=== PATIENT | male | born 1965 | race Caucasian/White ===

== ENCOUNTER 2016-06-12 12:23 | Emergency (ER) | payer BC ==
[2016-06-12 12:28] VITALS: TEMP 98
[2016-06-12] MEDS ORDERED: KETOROLAC 30 MG/ML 1 ML VIAL IVP STA (13:00)
[2016-06-12] MEDS ORDERED: MORPHINE SULFATE 4 MG/ML SYRINGE IV STA (13:00)
--- NOTE | 2016-06-12 13:05 | ED ---
Abdominal Pain HPI - General Chief Complaint: Back Pain/Injury Stated Complaint: Abdominal Pain Time Seen by Provider: 06/12/16 12:31 Source: patient, RN notes reviewed Mode of arrival: ambulatory Limitations: no limitations - History of Present Illness Initial Comments: This patient is a 51-year-old man who presents with pain that he states reminds him of a previous kidney stone. He states that the pain came on this morning after he had put somewhat in the stove, while he was driving to work. He noticed the pain in the left lower quadrant and left flank. He states that the pain then became more severe over the next couple of hours. The pain is somewhat aching and somewhat sharp. Currently moderate intensity. He has not found anything that makes it get better or worse. The patient has also noticed that he has had darker than usual urine. No other symptoms. MD Complaint: abdominal pain, flank pain Onset/Timin -: hour(s) Location: LLQ, L flank Radiation: none Migration to: no migration Severity: moderate Quality: aching, sharp Consistency: constant Improves With: nothing Worsens With: nothing Associated Symptoms: other (Dark urine) - Related Data Home Medications Medication Instructions Recorded Confirmed Ibuprofen [Motrin] 400 mg PO Q6HR PRN 06/12/16 06/12/16 Previous Rx's Medication Instructions Recorded Hydrocodone/Acetaminophen [[place] 1 each PO Q6HR PRN #20 tab 06/12/16 5-325] Ondansetron Odt [Zofran ODT] 4 mg PO Q8HR PRN #10 tab 06/12/16 Tamsulosin [Flomax] 0.4 mg PO DAILY #14 cap 06/12/16 Allergies Allergy/AdvReac Type Severity Reaction Status Date / Time No Known Allergies Allergy Verified 06/12/16 12:36 Review of Systems ROS Statement: Those systems with pertinent positive or pertinent negative responses have been documented in the HPI. ROS Other: All systems not noted in ROS Statement are negative. Constitutional: Denies: fever, chills Respiratory: Denies: cough, dyspnea Cardiovascular: Denies: chest pain Gastrointestinal: Reports: abdominal pain. Denies: nausea, vomiting, diarrhea, constipation, melena, hematochezia Genitourinary: Reports: as per HPI, other (Darker urine). Denies: dysuria, frequency, testicular mass Musculoskeletal: Denies: back pain Skin: Denies: rash Neurological: Denies: headache, weakness, numbness Past Medical History Past Medical History: No Reported History History of Any Multi-Drug Resistant Organisms: None Reported Past Surgical History: No Surgical Hx Reported Past Psychological History: No Psychological Hx Reported Smoking Status: Never smoker Past Alcohol Use History: None Reported Past Drug Use History: None Reported General Exam Limitations: no limitations General appearance: alert, in no apparent distress Head exam: Present: atraumatic, normocephalic Eye exam: Present: normal appearance. Absent: scleral icterus, conjunctival injection ENT exam: Present: normal oropharynx Neck exam: Present: normal inspection, full ROM Respiratory exam: Present: normal lung sounds bilaterally. Absent: respiratory distress, wheezes, rales, rhonchi, stridor Cardiovascular Exam: Present: regular rate, normal rhythm, normal heart sounds. Absent: systolic murmur, diastolic murmur, rubs, gallop GI/Abdominal exam: Present: soft, normal bowel sounds. Absent: distended, tenderness, guarding, rebound, organomegaly, mass, pulsatile mass Extremities exam: Present: normal inspection, normal capillary refill. Absent: pedal edema, calf tenderness Back exam: Present: normal inspection. Absent: CVA tenderness (R), CVA tenderness (L) Skin exam: Present: warm, dry, intact, normal color. Absent: rash Course Vital Signs 06/12/16 06/12/16 12:27 14:26 Temperature 98 F Pulse Rate 89 73 Respiratory 20 18 Rate Blood Pressure 172/84 163/94 O2 Sat by Pulse 96 97 Oximetry Medical Decision Making - Lab Data Result diagrams: 06/12/16 13:10 06/12/16 13:10 Lab Results 06/12/16 06/12/16 06/12/16 Range/Units 13:00 13:10 13:10 WBC 5.8 (3.8-10.6) k/uL RBC 5.61 (4.30-5.90) m/uL Hgb 17.1 (13.0-17.5) gm/dL Hct 51.4 (39.0-53.0) % MCV 91.5 (80.0-100.0) fL MCH 30.5 (25.0-35.0) pg MCHC 33.3 (31.0-37.0) g/dL RDW 13.0 (11.5-15.5) % Plt Count 192 (150-450) k/uL Neutrophils % 70 % Lymphocytes % 19 % Monocytes % 5 % Eosinophils % 3 % Basophils % 1 % Neutrophils # 4.0 (1.3-7.7) k/uL Lymphocytes # 1.1 (1.0-4.8) k/uL Monocytes # 0.3 (0-1.0) k/uL Eosinophils # 0.2 (0-0.7) k/uL Basophils # 0.0 (0-0.2) k/uL Sodium 142 (137-145) mmol/L Potassium 4.6 (3.5-5.1) mmol/L Chloride 104 (98-107) mmol/L Carbon Dioxide 25 (22-30) mmol/L Anion Gap 13 mmol/L BUN 19 (9-20) mg/dL Creatinine 0.95 (0.66-1.25) mg/dL Est GFR (MDRD) Af Amer >60 (>60 ml/min/1.73 sqM) Est GFR (MDRD) Non-Af >60 (>60 ml/min/1.73 sqM) Glucose 94 (74-99) mg/dL Calcium 9.5 (8.4-10.2) mg/dL Urine Color Yellow Urine Appearance Cloudy (Clear) Urine pH 5.5 (5.0-8.0) Ur Specific [place] 1.021 (1.001-1.035) Urine Protein Trace H (Negative) Urine Glucose (UA) Negative (Negative) Urine Ketones Trace H (Negative) Urine Blood Moderate H (Negative) Urine Nitrate Negative (Negative) Urine Bilirubin Negative (Negative) Urine Urobilinogen <2.0 (<2.0) mg/dL Ur Leukocyte Esterase Negative (Negative) Urine RBC >182 H (0-5) /hpf Urine Bacteria Rare H (None) /hpf Urine Mucus Occasional H (None) /hpf Disposition Clinical Impression: Renal colic, Hypertension Disposition: HOME SELF-CARE Condition: Good Instructions: Renal Colic (ED), Hypertension (ED) Prescriptions: Hydrocodone/Acetaminophen [[place] 5-325] 1 each PO Q6HR PRN #20 tab PRN Reason: Pain Ondansetron Odt [Zofran ODT] 4 mg PO Q8HR PRN #10 tab PRN Reason: Nausea Tamsulosin [Flomax] 0.4 mg PO DAILY #14 cap Referrals: Meghna Tello MD [Primary Care Provider] - 1-2 days Chau Christine MD [STAFF PHYSICIAN] - 1-2 days
[2016-06-12 13:24] LABS: Basophils % (A) 1 %; CH 30.9; CHCM 33.9; Eosinophils # (A) 0.2 k/uL (0-0.7); Eosinophils % (A) 3 %; HCT 51.4 % (39.0-53.0); HDW 2.66; HGB 17.1 gm/dL (13.0-17.5); Luc # (Auto) 0.17; Luc % (Auto) 3; Lymphocytes # (A) 1.1 k/uL (1.0-4.8); Lymphocytes % (A) 19 %; MCH 30.5 pg (25.0-35.0); MCHC 33.3 g/dL (31.0-37.0); MCV 91.5 fL (80.0-100.0); Mean Platelet Volume 6.9; Monocytes # (A) 0.3 k/uL (0-1.0); Monocytes % (A) 5 %; Neutrophils % (A) 70 %; RBC 5.61 m/uL (4.30-5.90); WBC 5.8 k/uL (3.8-10.6); WBC (Perox) 6.29
[2016-06-12 13:30] LABS: Appearance,Urine Cloudy (Clear); Bacteria,Urine Rare /hpf; Bilirubin,Urine Negative (Negative); Glucose,Urine (UA) Negative (Negative); Ketones,Urine Trace (Negative); Leukocyte Esterase,Urine Negative (Negative); Mucus,Urine Occasional /hpf; Nitrite,Urine Negative (Negative); PH, Urine 5.5 (5.0-8.0); Particle Count 3307; Protein,Urine Trace (Negative); RBC,Urine >182 /hpf (0-5); Specific Gravity,Urine 1.021 (1.001-1.035); UA Billing (MACRO vs. MICRO) MICRO; Urobilinogen,Urine <2.0 mg/dL (<2.0)
[2016-06-12 13:34] LABS: Anion Gap 13 mmol/L; Blood Urea Nitrogen 19 mg/dL (9-20); Calcium 9.5 mg/dL (8.4-10.2); Carbon Dioxide 25 mmol/L (22-30); Chloride 104 mmol/L (98-107); Glucose 94 mg/dL (74-99); Non-African American GFR(MDRD) >60 (>60 ml/min/1.73 sqM); Potassium 4.6 mmol/L (3.5-5.1); Sodium 142 mmol/L (137-145)
[2016-06-12] MEDS ORDERED: TAMSULOSIN 0.4 MG CAP.ER.24H PO STA (13:38)
[2016-06-12 14:27] VITALS: BP 163/94; PULSE 73; RESP 18
== END 2016-06-12 14:38 | disposition home or self-care (01) ==
LOC: EC 12:23
DX: N23 Unspecified renal colic (principal); I10 Essential (primary) hypertension
CPT/HCPCS: 99284; 96374; 36415; 80048; 85025; 81001; J1885

== ENCOUNTER → 2016-06-18 | Outpatient (CLI) | payer BC ==
--- NOTE | 2016-06-18 12:27 | XR ---
EXAMINATION TYPE: XR KUB DATE OF EXAM ORDERED: 06/18/2016 12:09 PM HISTORY: Low back pain. COMPARISON: None. FINDINGS: The abdominal gas pattern is normal. There is no evidence of obstruction or free air. Ther e are multiple phleboliths within the pelvis. There is moderate stool within the right side of the co soledad. IMPRESSION: NO ACUTE INTRA-ABDOMINAL ABNORMALITY.
== END | disposition home or self-care (01) ==
LOC: RADXRMAIN 11:49
PROVIDERS: ATTEND Urology
DX: N20.0 Calculus of kidney (principal)
CPT/HCPCS: 74000

== ENCOUNTER 2017-03-30 17:31 | Emergency (ER) | payer BC ==
--- NOTE | 2017-03-30 18:34 | ED ---
General Adult HPI - General Chief complaint: Abdominal Pain Stated complaint: Kidney Stones Time Seen by Provider: 03/30/17 18:24 Source: patient, RN notes reviewed Mode of arrival: ambulatory Limitations: no limitations - History of Present Illness Initial comments: patient 52-year-old male significant past medical history of kidney stones, who presents emergency room today with a chief complaint of kidney stone type pain that began earlier in the month. He does not that his symptoms began. states that over the last few days the symptoms have been more consistent. States feeling pain on the left flank. States consistent with kidney stone pain that is had in the past. Has seen some hematuria a few days ago. Patient states over the last 2 hours he was having increased pain but since being here in the emergency room symptoms have improved currently at this time pain-free. Patient denies any recent fever, chills, shortness of breath, chest pain, back pain, nausea or vomiting, numbness or tingling, dysuria or hematuria, constipation or diarrhea, headaches or visual changes, or any other complaints. - Related Data Home Medications Medication Instructions Recorded Confirmed Ibuprofen [Motrin] 400 mg PO Q6HR PRN 06/12/16 03/30/17 Ascorbic Acid [Vitamin C] 500 mg PO DAILY PRN 03/30/17 03/30/17 Hydrocodone/Acetaminophen [[place] 1 tab PO Q6HR PRN 03/30/17 03/30/17 5-325] Previous Rx's Medication Instructions Recorded Hydrocodone/Acetaminophen [[place] 1 each PO Q6HR PRN #20 tab 03/30/17 5-325] Ibuprofen [Motrin] 600 mg PO Q6HR PRN #40 day 03/30/17 Tamsulosin [Flomax] 0.4 mg PO DAILY #10 cap 03/30/17 Allergies Allergy/AdvReac Type Severity Reaction Status Date / Time No Known Allergies Allergy Verified 03/30/17 19:05 Review of Systems ROS Statement: Those systems with pertinent positive or pertinent negative responses have been documented in the HPI. ROS Other: All systems not noted in ROS Statement are negative. Past Medical History Past Medical History: No Reported History Additional Past Medical History / Comment(s): kidneys tones History of Any Multi-Drug Resistant Organisms: None Reported Past Surgical History: No Surgical Hx Reported Past Psychological History: No Psychological Hx Reported Smoking Status: Never smoker Past Alcohol Use History: None Reported Past Drug Use History: None Reported General Exam - General Exam Comments Initial Comments: General: The patient is awake and alert, in no distress, and does not appear acutely ill. Eye: Pupils are equal, round and reactive to light, extra-ocular movements are intact. No nystagmus. There is normal conjunctiva bilaterally. No signs of icterus. Ears, nose, mouth and throat: There are moist mucous membranes and no oral lesions. Neck: The neck is supple, there is no tenderness or JVD. Cardiovascular: There is a regular rate and rhythm. No murmur, rub or gallop is appreciated. Respiratory: Lungs are clear to auscultation, respirations are non-labored, breath sounds are equal. No wheezes, stridor, rales, or rhonchi. Gastrointestinal: Soft, non-distended, non-tender abdomen without masses or organomegaly noted. There is no rebound or guarding present. No CVA tenderness. Bowel sounds are unremarkable. Musculoskeletal: Normal ROM, no tenderness. Strength 5/5. Sensation intact. Pulses equal bilaterally 2+. Neurological: A&O x 3. CN II-XII intact, There are no obvious motor or sensory deficits. Coordination appears grossly intact. Speech is normal. Skin: Skin is warm and dry and no rashes or lesions are noted. Psychiatric: Cooperative, appropriate mood & affect, normal judgment. Limitations: no limitations Course Vital Signs 03/30/17 17:57 Temperature 98.8 F Pulse Rate 79 Respiratory 18 Rate Blood Pressure 160/83 O2 Sat by Pulse 99 Oximetry Medical Decision Making - Medical Decision Making Patient reexamined at this time shows no signs of distress. Is much improvement of her medications given here the emergency room. Patient's labs reviewed. Urinalysis shows large amount of blood no sign of infection. Patient does admit that the symptoms are consistent with kidney stones. He does admit that he plans follow-up with his urologist tomorrow. Options of CT were discussed with the patient it started feels comfortable following up with his urologist. States symptoms are consistent with stones that is had in the past. There is no sign of infection. Patient will be discharged home on Flomax , pain medication. Advised return to emergency room if any symptoms increase or worsen and to follow-up with his urologist over the next 2 days. - Lab Data Result diagrams: 03/30/17 18:34 03/30/17 18:34 Lab Results 03/30/17 03/30/17 03/30/17 Range/Units 18:34 18:34 18:34 WBC 9.9 (3.8-10.6) k/uL RBC 5.13 (4.30-5.90) m/uL Hgb 15.7 (13.0-17.5) gm/dL Hct 47.9 (39.0-53.0) % MCV 93.5 (80.0-100.0) fL MCH 30.7 (25.0-35.0) pg MCHC 32.8 (31.0-37.0) g/dL RDW 13.8 (11.5-15.5) % Plt Count 198 (150-450) k/uL Neutrophils % 74 % Lymphocytes % 14 % Monocytes % 8 % Eosinophils % 3 % Basophils % 0 % Neutrophils # 7.3 (1.3-7.7) k/uL Lymphocytes # 1.4 (1.0-4.8) k/uL Monocytes # 0.8 (0-1.0) k/uL Eosinophils # 0.2 (0-0.7) k/uL Basophils # 0.0 (0-0.2) k/uL Sodium 141 (137-145) mmol/L Potassium 3.8 (3.5-5.1) mmol/L Chloride 105 (98-107) mmol/L Carbon Dioxide 27 (22-30) mmol/L Anion Gap 9 mmol/L BUN 15 (9-20) mg/dL Creatinine 1.29 H (0.66-1.25) mg/dL Est GFR (MDRD) Af Amer >60 (>60 ml/min/1.73 sqM) Est GFR (MDRD) Non-Af 58 (>60 ml/min/1.73 sqM) Glucose 100 H (74-99) mg/dL Calcium 9.5 (8.4-10.2) mg/dL Total Bilirubin 0.7 (0.2-1.3) mg/dL AST 22 (17-59) U/L ALT 38 (21-72) U/L Alkaline Phosphatase 72 (38-126) U/L Total Protein 7.0 (6.3-8.2) g/dL Albumin 4.2 (3.5-5.0) g/dL Lipase 90 (23-300) U/L Urine Color Yellow Urine Appearance Clear (Clear) Urine pH 6.5 (5.0-8.0) Ur Specific [place] 1.019 (1.001-1.035) Urine Protein Trace H (Negative) Urine Glucose (UA) Negative (Negative) Urine Ketones Negative (Negative) Urine Blood Large H (Negative) Urine Nitrite Negative (Negative) Urine Bilirubin Negative (Negative) Urine Urobilinogen <2.0 (<2.0) mg/dL Ur Leukocyte Esterase Negative (Negative) Urine RBC >182 H (0-5) /hpf Urine WBC 2 (0-5) /hpf Urine Mucus Rare H (None) /hpf Disposition Clinical Impression: Kidney stone Disposition: HOME SELF-CARE Condition: Good Instructions: Kidney Stones (ED) Additional Instructions: Please use medication as discussed. Please follow-up with urologist/family doctor in the next 2 days of symptoms have not improved. Please return to emergency room if the symptoms increase or worsen or for any other concerns. Prescriptions: Hydrocodone/Acetaminophen [[place] 5-325] 1 each PO Q6HR PRN #20 tab PRN Reason: Pain Ibuprofen [Motrin] 600 mg PO Q6HR PRN #40 day PRN Reason: Pain Tamsulosin [Flomax] 0.4 mg PO DAILY #10 cap Referrals: Meghna Tello MD [Primary Care Provider] - 1-2 days Time of Disposition: 19:29
[2017-03-30] MEDS ORDERED: ONDANSETRON 4 MG/2 ML VIAL IVP STA (18:39)
[2017-03-30] MEDS ORDERED: KETOROLAC 30 MG/ML 1 ML VIAL IVP STA (18:39)
[2017-03-30] MEDS ORDERED: HYDROmorphone 1 MG/ML 1 ML SYRINGE IVP STA (18:39)
[2017-03-30 18:46] LABS: Basophils % (A) 0 %; CH 30.5; CHCM 32.8; Eosinophils # (A) 0.2 k/uL (0-0.7); Eosinophils % (A) 3 %; HCT 47.9 % (39.0-53.0); HDW 2.47; HGB 15.7 gm/dL (13.0-17.5); Luc # (Auto) 0.15; Luc % (Auto) 2; Lymphocytes # (A) 1.4 k/uL (1.0-4.8); Lymphocytes % (A) 14 %; MCH 30.7 pg (25.0-35.0); MCHC 32.8 g/dL (31.0-37.0); MCV 93.5 fL (80.0-100.0); Mean Platelet Volume 7.6; Monocytes # (A) 0.8 k/uL (0-1.0); Monocytes % (A) 8 %; Neutrophils # (A) 7.3 k/uL (1.3-7.7); Neutrophils % (A) 74 %; RBC 5.13 m/uL (4.30-5.90); RDW 13.8 % (11.5-15.5); WBC 9.9 k/uL (3.8-10.6); WBC (Perox) 9.77
[2017-03-30 18:49] LABS: Appearance,Urine Clear (Clear); Bilirubin,Urine Negative (Negative); Glucose,Urine (UA) Negative (Negative); Ketones,Urine Negative (Negative); Leukocyte Esterase,Urine Negative (Negative); Mucus,Urine Rare /hpf; Nitrite,Urine Negative (Negative); PH, Urine 6.5 (5.0-8.0); Particle Count 1908; Protein,Urine Trace (Negative); RBC,Urine >182 /hpf (0-5); Specific Gravity,Urine 1.019 (1.001-1.035); UA Billing (MACRO vs. MICRO) MICRO; Urobilinogen,Urine <2.0 mg/dL (<2.0); WBC,Urine 2 /hpf (0-5)
[2017-03-30 18:58] LABS: ALT 38 U/L (21-72); AST 22 U/L (17-59); Alkaline Phosphatase 72 U/L (38-126); Anion Gap 9 mmol/L; Blood Urea Nitrogen 15 mg/dL (9-20); Calcium 9.5 mg/dL (8.4-10.2); Carbon Dioxide 27 mmol/L (22-30); Chloride 105 mmol/L (98-107); Glucose 100 mg/dL (74-99); Non-African American GFR(MDRD) 58 (>60 ml/min/1.73 sqM); Potassium 3.8 mmol/L (3.5-5.1); Sodium 141 mmol/L (137-145); Total Bilirubin 0.7 mg/dL (0.2-1.3)
--- NOTE | 2017-03-30 19:08 | XR ---
EXAMINATION TYPE: XR KUB DATE OF EXAM: 03/30/2017 COMPARISON: 06/18/2016 HISTORY: Abdominal pain TECHNIQUE: 2 views FINDINGS: There is no sign of intestinal obstruction or pneumoperitoneum. Fecal pattern is normal. Th ere are no pathologic calcifications over the kidneys. Lung bases are clear. There is no sign of a ma ss. IMPRESSION: Nonacute abdomen. No change.
[2017-03-30] MEDS ORDERED: HYDROmorphone 2 MG/ML 1 ML SYRINGE IVP STA (19:35)
[2017-03-30 20:22] VITALS: BP 150/87; PULSE 78; RESP 20; TEMP 98.7
== END 2017-03-30 20:15 | disposition home or self-care (01) ==
LOC: EC 17:31
DX: N20.0 Calculus of kidney (principal); Z53.8 Procedure and treatment not carried out for other reasons
CPT/HCPCS: 36415; 80053; 83690; 85025; 81001; 87086; 74000; 99284; 96374; 96375 ×2; J1170; J2405; J1885

== ENCOUNTER → 2017-04-01 | Outpatient (CLI) | payer BC ==
--- NOTE | 2017-04-01 14:50 | CT ---
EXAMINATION TYPE: CT abdomen pelvis wo con DATE OF EXAM: 04/01/2017 HISTORY: Left flank pain since Wednesday. History of kidney stones CT DLP: 652.2 mGycm. Automated Exposure Control for Dose Reduction was Utilized. TECHNIQUE: CT scan of the abdomen and pelvis is performed without oral or IV contrast. COMPARISON: CT abdomen and pelvis November 15, 2011 FINDINGS: Within the limitations of a non-contrast study, the following observations are made. LUNG BASES: No significant abnormality is appreciated. LIVER/GB: No significant abnormality is appreciated. PANCREAS: There is stable mild to moderate generalized fat replaced atrophy of pancreas SPLEEN: There is stable 9 mm splenule in splenic hilum. ADRENALS: No significant abnormality is seen. KIDNEYS: No renal stones or hydronephrosis is present bilaterally. There is mild ill-defined fluid or fat stranding left retroperitoneum just above the iliopsoas muscle inferior to left renal margin see n best axial image 97. A few scattered pelvic phleboliths. No intraluminal calculus in the bladder is seen. BOWEL: No significant abnormality is seen. GENITAL ORGANS: Central zone calcification is seen in normal size prostate gland. LYMPH NODES: No greater than 1cm abdominal or pelvic lymph nodes are appreciated. OSSEOUS STRUCTURES: No significant abnormality is seen. OTHER: Mild calcified plaque is seen along course of internal carotid arteries bilaterally. IMPRESSION: No renal stones or hydronephrosis is seen bilaterally. Mild inferior left retroperitoneal fluid or fat stranding, etiology uncertain, consider recently passed stone worrisome possible infect ion along course of nearby left ureter. Correlate clinically and with urine lab values.
== END | disposition home or self-care (01) ==
LOC: RADCTMAIN 14:12
PROVIDERS: ATTEND Urology
DX: R10.9 Unspecified abdominal pain (principal); Z87.442 Personal history of urinary calculi
CPT/HCPCS: 74176

== ENCOUNTER 2017-04-22 19:28 | Emergency (ER) | payer BC ==
[2017-04-22 19:54] VITALS: RESP 18; TEMP 97.9
[2017-04-22 20:05] LABS: Appearance,Urine Clear (Clear); Bacteria,Urine Rare /hpf; Bilirubin,Urine Negative (Negative); Glucose,Urine (UA) Negative (Negative); Ketones,Urine Negative (Negative); Leukocyte Esterase,Urine Negative (Negative); Mucus,Urine Rare /hpf; Nitrite,Urine Negative (Negative); Particle Count 816; Protein,Urine Negative (Negative); RBC,Urine 1 /hpf (0-5); Specific Gravity,Urine 1.006 (1.001-1.035); UA Billing (MACRO vs. MICRO) MICRO; Urobilinogen,Urine <2.0 mg/dL (<2.0); WBC,Urine 1 /hpf (0-5)
[2017-04-22 20:55] VITALS: PULSE 64
[2017-04-22] MEDS ORDERED: SODIUM CHLORIDE 0.9% 1,000 ML IV STA (21:01)
[2017-04-22] MEDS ORDERED: KETOROLAC 30 MG/ML 1 ML VIAL IVP STA (21:01)
[2017-04-22 21:48] LABS: Basophils # (A) 0.1 k/uL (0-0.2); Basophils % (A) 1 %; CH 30.7; CHCM 32.6; Eosinophils # (A) 0.2 k/uL (0-0.7); Eosinophils % (A) 3 %; HCT 49.4 % (39.0-53.0); HDW 2.44; HGB 15.8 gm/dL (13.0-17.5); Luc # (Auto) 0.17; Luc % (Auto) 2; Lymphocytes # (A) 1.8 k/uL (1.0-4.8); Lymphocytes % (A) 22 %; MCH 30.3 pg (25.0-35.0); MCV 94.7 fL (80.0-100.0); Mean Platelet Volume 7.8; Monocytes # (A) 0.6 k/uL (0-1.0); Monocytes % (A) 7 %; Neutrophils # (A) 5.5 k/uL (1.3-7.7); Neutrophils % (A) 66 %; RBC 5.22 m/uL (4.30-5.90); RDW 13.6 % (11.5-15.5); WBC 8.3 k/uL (3.8-10.6); WBC (Perox) 8.44
--- NOTE | 2017-04-22 21:59 | XR ---
EXAMINATION TYPE: XR KUB, 2 views DATE OF EXAM: 04/22/2017 9:43 PM CLINICAL HISTORY: Left-sided kidney calcification history, now urination urgency TECHNIQUE: 2 upright views obtained of the abdomen and pelvis. COMPARISON: 03/30/2017 FINDINGS: Scattered gas is seen in non-distended small bowel loops. Gas and fecal material is seen in non-distended colon. There is no visceromegaly, and this includes urinary bladder which is not appea r distended. There is no pneumoperitoneum, ptosis, or abnormal calcification appreciated. The generalized lung bases and pleural spaces are clear. The osseous structures are intact. IMPRESSION: Unremarkable examination.
[2017-04-22 22:03] LABS: ALT 35 U/L (21-72); AST 23 U/L (17-59); Alkaline Phosphatase 73 U/L (38-126); Amylase 48 U/L (30-110); Anion Gap 13 mmol/L; Blood Urea Nitrogen 16 mg/dL (9-20); Calcium 9.9 mg/dL (8.4-10.2); Carbon Dioxide 28 mmol/L (22-30); Chloride 102 mmol/L (98-107); Glucose 81 mg/dL (74-99); Non-African American GFR(MDRD) >60 (>60 ml/min/1.73 sqM); Potassium 3.7 mmol/L (3.5-5.1); Sodium 143 mmol/L (137-145); Total Bilirubin 0.7 mg/dL (0.2-1.3); Total Protein 7.3 g/dL (6.3-8.2)
--- NOTE | 2017-04-22 22:29 | ED ---
Abdominal Pain HPI - General Chief Complaint: Abdominal Pain Stated Complaint: Abd /Back Pain Time Seen by Provider: 04/22/17 20:40 Source: patient, RN notes reviewed, old records reviewed Mode of arrival: ambulatory Limitations: no limitations - History of Present Illness Initial Comments: This is a 32-year-old male presents emergency department today with chief complaint of left flank pain. He reports he had passed a kidney stone things don't feel like today's pain is similar to this. Patient reports urinary frequency and dysuria. Patient denies any fever or chills, abdominal pain, nausea or vomiting. - Related Data Home Medications Medication Instructions Recorded Confirmed Hydrocodone/Acetaminophen [[place] 1 tab PO Q6HR PRN 03/30/17 04/22/17 5-325] Previous Rx's Medication Instructions Recorded Ibuprofen [Motrin] 600 mg PO Q6HR PRN #40 day 03/30/17 Ciprofloxacin HCl [Cipro] 500 mg PO Q12HR 7 Days tab 04/22/17 Ketorolac [Toradol] 10 mg PO TID #15 tab 04/22/17 Tamsulosin [Flomax] 0.4 mg PO DAILY #10 cap 04/22/17 Allergies Allergy/AdvReac Type Severity Reaction Status Date / Time No Known Allergies Allergy Verified 04/22/17 21:37 Review of Systems ROS Statement: Those systems with pertinent positive or pertinent negative responses have been documented in the HPI. ROS Other: All systems not noted in ROS Statement are negative. Past Medical History Past Medical History: No Reported History Additional Past Medical History / Comment(s): kidney stones History of Any Multi-Drug Resistant Organisms: None Reported Past Surgical History: No Surgical Hx Reported Past Psychological History: No Psychological Hx Reported Smoking Status: Never smoker Past Alcohol Use History: None Reported Past Drug Use History: None Reported General Exam - General Exam Comments Initial Comments: Blurry eyed a 52-year-old male. No distress. Limitations: no limitations General appearance: alert, in no apparent distress Head exam: Present: atraumatic, normocephalic, normal inspection Eye exam: Present: normal appearance, PERRL, EOMI. Absent: scleral icterus, conjunctival injection, periorbital swelling ENT exam: Present: normal exam, mucous membranes moist Neck exam: Present: normal inspection. Absent: tenderness, meningismus, lymphadenopathy Respiratory exam: Present: normal lung sounds bilaterally. Absent: respiratory distress, wheezes, rales, rhonchi, stridor Cardiovascular Exam: Present: regular rate, normal rhythm, normal heart sounds. Absent: systolic murmur, diastolic murmur, rubs, gallop, clicks GI/Abdominal exam: Present: soft, normal bowel sounds. Absent: distended, tenderness, guarding, rebound, rigid Extremities exam: Present: normal inspection, full ROM, normal capillary refill. Absent: tenderness, pedal edema, joint swelling, calf tenderness Back exam: Present: normal inspection Neurological exam: Present: alert, oriented X3, CN II-XII intact Psychiatric exam: Present: normal affect, normal mood Skin exam: Present: warm, dry, intact, normal color. Absent: rash Course Vital Signs 04/22/17 04/22/17 04/22/17 19:50 20:45 23:25 Temperature 97.9 F 97.9 F Pulse Rate 84 64 64 Respiratory 18 18 18 Rate Blood Pressure 140/82 168/95 158/90 O2 Sat by Pulse 99 99 99 Oximetry Medical Decision Making - Medical Decision Making Patient is a 52 year old male with urinary frequency and flank pain. Patient had recent CT scan, and discussed checking for stones we can complete US. Patient labs were reviewed and normal. Patient urine had trace RBC. US and KUB are negative for stones or hydronephrosis. Patient reports that he is feeling better and would like to go home. Discussed that he could have passed a stone already at this time. Discussed follow up with urology. REturn parameters discussed. - Lab Data Result diagrams: 04/22/17 21:30 04/22/17 21:30 Lab Results 04/22/17 04/22/17 04/22/17 Range/Units 19:56 21:30 21:30 WBC 8.3 (3.8-10.6) k/uL RBC 5.22 (4.30-5.90) m/uL Hgb 15.8 (13.0-17.5) gm/dL Hct 49.4 (39.0-53.0) % MCV 94.7 (80.0-100.0) fL MCH 30.3 (25.0-35.0) pg MCHC 32.0 (31.0-37.0) g/dL RDW 13.6 (11.5-15.5) % Plt Count 227 (150-450) k/uL Neutrophils % 66 % Lymphocytes % 22 % Monocytes % 7 % Eosinophils % 3 % Basophils % 1 % Neutrophils # 5.5 (1.3-7.7) k/uL Lymphocytes # 1.8 (1.0-4.8) k/uL Monocytes # 0.6 (0-1.0) k/uL Eosinophils # 0.2 (0-0.7) k/uL Basophils # 0.1 (0-0.2) k/uL Sodium 143 (137-145) mmol/L Potassium 3.7 (3.5-5.1) mmol/L Chloride 102 (98-107) mmol/L Carbon Dioxide 28 (22-30) mmol/L Anion Gap 13 mmol/L BUN 16 (9-20) mg/dL Creatinine 1.10 (0.66-1.25) mg/dL Est GFR (MDRD) Af Amer >60 (>60 ml/min/1.73 sqM) Est GFR (MDRD) Non-Af >60 (>60 ml/min/1.73 sqM) Glucose 81 (74-99) mg/dL Calcium 9.9 (8.4-10.2) mg/dL Total Bilirubin 0.7 (0.2-1.3) mg/dL AST 23 (17-59) U/L ALT 35 (21-72) U/L Alkaline Phosphatase 73 (38-126) U/L Total Protein 7.3 (6.3-8.2) g/dL Albumin 4.5 (3.5-5.0) g/dL Amylase 48 (30-110) U/L Lipase 53 (23-300) U/L Urine Color Light Yellow Urine Appearance Clear (Clear) Urine pH 7.0 (5.0-8.0) Ur Specific [place] 1.006 (1.001-1.035) Urine Protein Negative (Negative) Urine Glucose (UA) Negative (Negative) Urine Ketones Negative (Negative) Urine Blood Trace H (Negative) Urine Nitrite Negative (Negative) Urine Bilirubin Negative (Negative) Urine Urobilinogen <2.0 (<2.0) mg/dL Ur Leukocyte Esterase Negative (Negative) Urine RBC 1 (0-5) /hpf Urine WBC 1 (0-5) /hpf Urine Bacteria Rare H (None) /hpf Urine Mucus Rare H (None) /hpf - Radiology Data Radiology results: report reviewed US is negative for renal stones or hydronephrosis. KUB is negative for acute process. Disposition Clinical Impression: Hematuria Disposition: HOME SELF-CARE Condition: Good Instructions: Dysuria (ED), Flank Pain (ED) Additional Instructions: Patient to follow-up with primary care provider. Take the medications as prescribed. Return to emergency department if any alarming signs or symptoms occur. Prescriptions: Ciprofloxacin HCl [Cipro] 500 mg PO Q12HR 7 Days tab Ketorolac [Toradol] 10 mg PO TID #15 tab Tamsulosin [Flomax] 0.4 mg PO DAILY #10 cap Referrals: Meghna Tello MD [Primary Care Provider] - 1-2 days Time of Disposition: 23:23
--- NOTE | 2017-04-22 23:21 | US ---
EXAM: US Retroperitoneal Limited, Renal CLINICAL HISTORY: Reason: Pain, history of kidney stones TECHNIQUE: Real-time ultrasound of the retroperitoneum (limited) with image documentation. COMPARISON: CT abdomen and pelvis 04/01/17 and abdominal radiographs 04/22/17 FINDINGS: Right kidney: Normal echogenicity and length, measuring 12.6 cm. No renal calculus detected. No hydronephrosis. Left kidney: Normal echogenicity and length,, measuring 11.6 cm. Probable prominent column of Phil in the left kidney. No renal calculus detected. No hydronephrosis. Bladder: Not visualized. IMPRESSION: No hydronephrosis. No renal calculus detected.
[2017-04-22 23:26] VITALS: BP 158/90
== END 2017-04-22 23:36 | disposition home or self-care (01) ==
LOC: EC 19:28
DX: R31.9 Hematuria, unspecified (principal); R35.0 Frequency of micturition; R30.0 Dysuria; R10.9 Unspecified abdominal pain
CPT/HCPCS: 36415; 80053; 82150; 83690; 85025; 81001; 74000; 76770; 99285; 96374; 96361 ×2; J1885

== ENCOUNTER 2017-06-08 07:55 | Emergency (ER) | payer BC ==
[2017-06-08 08:06] VITALS: RESP 16
[2017-06-08 09:04] LABS: Basophils % (A) 0 %; Eosinophils # (A) 0.2 k/uL (0-0.7); Eosinophils % (A) 5 %; HGB 16.2 gm/dL (13.0-17.5); Lymphocytes # (A) 1.3 k/uL (1.0-4.8); Lymphocytes % (A) 27 %; MCH 31.4 pg (25.0-35.0); MCHC 33.8 g/dL (31.0-37.0); MCV 92.9 fL (80.0-100.0); Mean Platelet Volume 7.2; Monocytes # (A) 0.3 k/uL (0-1.0); Monocytes % (A) 6 %; Neutrophils # (A) 2.9 k/uL (1.3-7.7); Neutrophils % (A) 60 %; Platelet Count 196 k/uL (150-450); RBC 5.16 m/uL (4.30-5.90); WBC 4.8 k/uL (3.8-10.6)
--- NOTE | 2017-06-08 09:07 | ED ---
General Adult HPI - General Chief complaint: Urogenital Stated complaint: Back pain/burning when urinating Time Seen by Provider: 06/08/17 08:25 Source: patient, RN notes reviewed, old records reviewed Mode of arrival: ambulatory Limitations: no limitations - History of Present Illness Initial comments: Patient's a 52-year-old male who presents emergency room today with a chief complaint of dysuria. He does admit that he's had some symptoms on and off now for last several months. He states that he was seen in the emergency room diagnosed with possible kidney stone follow-up with urology who did not see the kidney stone at that time was still having some irritation was told that it should eventually clear up. Patient states that he came back to the emergency room was diagnosed with urinary tract infection was placed on antibiotic for 5 days. States he does not remember the name of that antibiotic. He states he follow-up back up with urology was still having symptoms did not see any sign for infection did do a cystoscopy showing no abnormality. Patient states that he was told that it again should improve. He states he had no improvement back to urology was told that it could be a infection of the prostate and started on antibiotic. He started taking Bactrim 4 days ago and no improvement of the symptoms still experiencing some discomfort with urination describes as burning. Also admits that even in between voiding episodes he feels some irritation to the penis itself and the shaft area. Patient does admit that he feels some increased frequency at times as well. He denies any other complaints. Patient denies any recent fever, chills, shortness of breath, chest pain, abdominal pain, nausea or vomiting, numbness or tingling, hematuria, constipation or diarrhea, headaches or visual changes, or any other complaints. - Related Data Home Medications Medication Instructions Recorded Confirmed Hydrocodone/Acetaminophen [[place] 1 tab PO Q6HR PRN 03/30/17 06/08/17 5-325] Sulfamethox-Tmp 800-160Mg [Bactrim 1 tab PO Q12HR 06/08/17 06/08/17 DS 800-160 mg] Tamsulosin [Flomax] 0.4 mg PO ONCE 06/08/17 06/08/17 Previous Rx's Medication Instructions Recorded Ibuprofen [Motrin] 600 mg PO Q6HR PRN #40 day 03/30/17 Phenazopyridine [Pyridium] 100 mg PO TID 6 Days day 06/08/17 Allergies Allergy/AdvReac Type Severity Reaction Status Date / Time No Known Allergies Allergy Verified 06/08/17 08:22 Review of Systems ROS Statement: Those systems with pertinent positive or pertinent negative responses have been documented in the HPI. ROS Other: All systems not noted in ROS Statement are negative. Past Medical History Past Medical History: No Reported History Additional Past Medical History / Comment(s): kidney stones History of Any Multi-Drug Resistant Organisms: None Reported Past Surgical History: No Surgical Hx Reported Past Psychological History: No Psychological Hx Reported Smoking Status: Never smoker Past Alcohol Use History: None Reported Past Drug Use History: None Reported General Exam - General Exam Comments Initial Comments: General: The patient is awake and alert, in no distress, and does not appear acutely ill. Eye: Pupils are equal, round and reactive to light, extra-ocular movements are intact. No nystagmus. There is normal conjunctiva bilaterally. No signs of icterus. Ears, nose, mouth and throat: There are moist mucous membranes and no oral lesions. Neck: The neck is supple, there is no tenderness or JVD. Cardiovascular: There is a regular rate and rhythm. No murmur, rub or gallop is appreciated. Respiratory: Lungs are clear to auscultation, respirations are non-labored, breath sounds are equal. No wheezes, stridor, rales, or rhonchi. Gastrointestinal: Soft, non-distended, non-tender abdomen without masses or organomegaly noted. There is no rebound or guarding present. No CVA tenderness. Musculoskeletal: Normal ROM, no tenderness. Strength 5/5. Sensation intact. Pulses equal bilaterally 2+. Neurological: A&O x 3. CN II-XII intact, There are no obvious motor or sensory deficits. Coordination appears grossly intact. Speech is normal. Skin: Skin is warm and dry and no rashes or lesions are noted. Psychiatric: Cooperative, appropriate mood & affect, normal judgment. Limitations: no limitations Course Vital Signs 06/08/17 08:02 Temperature 97.7 F Pulse Rate 92 Respiratory 16 Rate Blood Pressure 146/80 O2 Sat by Pulse 99 Oximetry Medical Decision Making - Medical Decision Making Patient reexamined at this time shows no signs of distress. His urinalysis review does show 43 red cells no sign of infection. Patient's remaining labs unremarkable. Patient will be left on Bactrim at this time culture is pending. Patient will be given a prescription for Pyridium. He is advised follow-up with urology. He is advised return if symptoms increase or worsen. - Lab Data Result diagrams: 06/08/17 08:58 06/08/17 08:58 Lab Results 06/08/17 06/08/17 06/08/17 Range/Units 08:30 08:58 08:58 WBC 4.8 (3.8-10.6) k/uL RBC 5.16 (4.30-5.90) m/uL Hgb 16.2 (13.0-17.5) gm/dL Hct 48.0 (39.0-53.0) % MCV 92.9 (80.0-100.0) fL MCH 31.4 (25.0-35.0) pg MCHC 33.8 (31.0-37.0) g/dL RDW 13.0 (11.5-15.5) % Plt Count 196 (150-450) k/uL Neutrophils % 60 % Lymphocytes % 27 % Monocytes % 6 % Eosinophils % 5 % Basophils % 0 % Neutrophils # 2.9 (1.3-7.7) k/uL Lymphocytes # 1.3 (1.0-4.8) k/uL Monocytes # 0.3 (0-1.0) k/uL Eosinophils # 0.2 (0-0.7) k/uL Basophils # 0.0 (0-0.2) k/uL Sodium 144 (137-145) mmol/L Potassium 3.7 (3.5-5.1) mmol/L Chloride 105 (98-107) mmol/L Carbon Dioxide 24 (22-30) mmol/L Anion Gap 15 mmol/L BUN 16 (9-20) mg/dL Creatinine 1.04 (0.66-1.25) mg/dL Est GFR (MDRD) Af Amer >60 (>60 ml/min/1.73 sqM) Est GFR (MDRD) Non-Af >60 (>60 ml/min/1.73 sqM) Glucose 97 (74-99) mg/dL Calcium 9.8 (8.4-10.2) mg/dL Total Bilirubin 1.0 (0.2-1.3) mg/dL AST 41 (17-59) U/L ALT 22 (21-72) U/L Alkaline Phosphatase 92 (38-126) U/L Total Protein 8.0 (6.3-8.2) g/dL Albumin 4.6 (3.5-5.0) g/dL Urine Color Yellow Urine Appearance Clear (Clear) Urine pH 5.5 (5.0-8.0) Ur Specific [place] 1.018 (1.001-1.035) Urine Protein Trace H (Negative) Urine Glucose (UA) Negative (Negative) Urine Ketones Negative (Negative) Urine Blood Small H (Negative) Urine Nitrite Negative (Negative) Urine Bilirubin Negative (Negative) Urine Urobilinogen <2.0 (<2.0) mg/dL Ur Leukocyte Esterase Negative (Negative) Urine RBC 43 H (0-5) /hpf Urine WBC 2 (0-5) /hpf Urine Mucus Few H (None) /hpf Disposition Clinical Impression: Dysuria, Hematuria Disposition: HOME SELF-CARE Condition: Good Instructions: Dysuria (ED) Additional Instructions: Please follow-up with urologist as discussed. Please use medication as prescribed and return to the emergency room symptoms increase or worsen. Prescriptions: Phenazopyridine [Pyridium] 100 mg PO TID 6 Days day Referrals: Meghna Tello MD [Primary Care Provider] - 1-2 days Chau Christine MD [STAFF PHYSICIAN] - 1-2 days Time of Disposition: 10:24
[2017-06-08 09:10] LABS: Appearance,Urine Clear (Clear); Bilirubin,Urine Negative (Negative); Blood,Urine Small (Negative); Color,Urine Yellow; Glucose,Urine (UA) Negative (Negative); Ketones,Urine Negative (Negative); Leukocyte Esterase,Urine Negative (Negative); Mucus,Urine Few /hpf; Nitrite,Urine Negative (Negative); PH, Urine 5.5 (5.0-8.0); Protein,Urine Trace (Negative); RBC,Urine 43 /hpf (0-5); Specific Gravity,Urine 1.018 (1.001-1.035); Urobilinogen,Urine <2.0 mg/dL (<2.0); WBC,Urine 2 /hpf (0-5)
--- NOTE | 2017-06-08 09:16 | XR ---
EXAMINATION TYPE: XR KUB DATE OF EXAM: 06/08/2017 9:07 AM CLINICAL HISTORY: Left groin pain with recent nephrolithiasis TECHNIQUE: Single supine KUB image of the abdomen is obtained. COMPARISON: 04/01/2017 and 04/22/2017. FINDINGS: Scattered gas is seen in non-distended small bowel loops. Gas and fecal material is seen in non-distended colon. There is no visceromegaly, pneumoperitoneum, or abnormal calcification apprecia rodney. The lung bases are clear and the osseous structures are intact. Mild degenerative changes of the lumbosacral junction and femoral acetabular joints are seen. IMPRESSION: Nonobstructive bowel gas pattern. No radiopaque calculi. Note on the CT of 04/01/2017 no renal calculi were present.
[2017-06-08 09:55] LABS: ALT 22 U/L (21-72); AST 41 U/L (17-59); Albumin 4.6 g/dL (3.5-5.0); Alkaline Phosphatase 92 U/L (38-126); Anion Gap 15 mmol/L; Blood Urea Nitrogen 16 mg/dL (9-20); Calcium 9.8 mg/dL (8.4-10.2); Carbon Dioxide 24 mmol/L (22-30); Chloride 105 mmol/L (98-107); Glucose 97 mg/dL (74-99); Sodium 144 mmol/L (137-145)
[2017-06-08 09:56] LABS: Potassium 3.7 mmol/L (3.5-5.1)
[2017-06-08 10:43] VITALS: BP 132/80; PULSE 70; TEMP 98
== END 2017-06-08 10:42 | disposition home or self-care (01) ==
LOC: EC 07:55
DX: R30.0 Dysuria (principal); R31.9 Hematuria, unspecified; Z79.899 Other long term (current) drug therapy
CPT/HCPCS: 36415; 74018; 80053; 81001; 85025; 87086; 99284

== ENCOUNTER → 2018-03-08 | Outpatient (CLI) | payer BC ==
--- NOTE | 2018-03-08 16:34 | XR ---
EXAMINATION TYPE: XR KUB DATE OF EXAM: 03/08/2018 4:22 PM CLINICAL HISTORY: Right flank pain with microscopic hematuria. TECHNIQUE: Two supine KUB images of the abdomen are obtained. COMPARISON: CT abdomen pelvis April 01, 2017. Abdominal x-ray June 08, 2017. FINDINGS: Scattered gas is seen in non-distended small bowel loops. Gas and fecal material is seen in non-distended colon. There is a 3 mm density left pelvis favors phlebolith. In retrospect there is d istal 5 mm calculus left ureter axial image [address] IMPRESSION: In retrospect there was 5 mm distal left ureter calculus on CT April 01, 2017. Correla te clinically if there is been interval passage, consider it is still present in distal ureter or pas chayo into bladder.
== END | disposition home or self-care (01) ==
LOC: RADXRYALE 16:12
PROVIDERS: ATTEND Internal Medicine
DX: N20.1 Calculus of ureter (principal)
CPT/HCPCS: 74018

== ENCOUNTER → 2018-10-11 | Outpatient (CLI) | payer BC ==
--- NOTE | 2018-10-11 10:54 | XR ---
EXAMINATION TYPE: XR lumbosacral spine min 4V DATE OF EXAM: 10/11/2018 CLINICAL HISTORY: Low back pain for 6 months after sprain injury. TECHNIQUE: Frontal, lateral, and oblique images of the lumbar spine are obtained. COMPARISON: CT abdomen and pelvis April 01, 2017 FINDINGS: There are 5 lumbar type vertebral bodies redemonstrated. The lumbar spine shows satisfact ory alignment without evidence of acute fracture or dislocation. Vertebral body heights remain within normal limits. There is persistent moderate to severe disc space narrowing with mild anterior spurri ng L5-S1 level The oblique images appear within normal limits. There is additional mild multilevel anterior and lateral spurring. Some facet arthropathy lower lumbar spine is present. The overlying so ft tissue appears unremarkable. IMPRESSION: As above, no significant change from comparison CT.
== END | disposition home or self-care (01) ==
LOC: RADXRYALE 10:21
PROVIDERS: ATTEND Family Medicine
DX: M99.73 Connective tissue and disc stenosis of intervertebral foramina of lumbar region (principal); M46.97 Unspecified inflammatory spondylopathy, lumbosacral region
CPT/HCPCS: 72110

== ENCOUNTER → 2018-10-14 | Outpatient (CLI) | payer BC ==
--- NOTE | 2018-10-14 12:57 | MR ---
EXAMINATION TYPE: MR lumbar spine wo con DATE OF EXAM: 10/14/2018 COMPARISON: Plain film 10/11/2018 HISTORY: Low back pain TECHNIQUE: Multiplanar, multisequence images of the lumbar spine were acquired. L1-L2: Normal disc appearance without desiccation. No herniation, protrusion or disc bulging. No ca nal stenosis is present. Foramina are patent bilaterally. L2-L3: Normal disc appearance without desiccation. No herniation, protrusion or disc bulging. No ca nal stenosis is present. Foramina are patent bilaterally. L3-L4: Normal disc appearance without desiccation. No herniation, protrusion or disc bulging. No ca nal stenosis is present. Foramina are patent bilaterally. L4-L5: There is some loss of disc signal compatible disc desiccation. No central stenosis or disc her niation, no significant foraminal encroachment. L5-S1: There is broad-based posterior disc bulge possibly contacting the anterior thecal sac and prox imal S1 nerve roots. Circumferential extension of endplate disc complex encroaches on the foramina. N o significant central stenosis. Lumbar segments are intact. No paraspinal masses are identified. Conus medullaris has a normal appe arance. There is multilevel spondylosis present. Loss of disc height signal is greatest at L5-S1 with associated vacuum phenomenon. IMPRESSION: Degenerative disc disease as described with foraminal encroachment.
== END | disposition home or self-care (01) ==
LOC: RADMRIMAIN 08:56
PROVIDERS: ATTEND Family Medicine
DX: M51.36 Other intervertebral disc degeneration, lumbar region (principal); M51.37 Other intervertebral disc degeneration, lumbosacral region
CPT/HCPCS: 72148

== ENCOUNTER → 2018-11-08 | Outpatient (CLI) | payer BC ==
--- NOTE | 2018-11-08 12:45 | CT ---
EXAMINATION TYPE: CT abdomen w con DATE OF EXAM: 11/08/2018 COMPARISON: 04/01/2017 HISTORY: RUQ pain, Rt sided pain for [address] DLP: 1297.4 mGycm Automated exposure control for dose reduction was used. TECHNIQUE: Helical acquisition of images was performed from the lung bases through the top of iliac crest to include entire abdomen. CONTRAST: Performed with Oral Contrast and with IV Contrast, patient injected with 100 mL of Isovue 300. FINDINGS: LUNG BASES: Along the dome of the liver there is a 2.1 cm mixed density lesion with peripheral enhanc ement in a nodular pattern suggestive of a small hemangioma.. LIVER/GB: No significant abnormality is appreciated. PANCREAS: Stable atrophy of the pancreas. SPLEEN: No significant abnormality is seen. ADRENALS: No significant abnormality is seen. KIDNEYS: No significant abnormality is seen. BOWEL: Sub-5 mm lipoma third portion duodenum. Small hiatal hernia. LYMPH NODES: No significant abnormality is seen. OSSEOUS STRUCTURES: Hypertrophic and degenerative change of the vertebral column.. OTHER: Visualized aorta of normal caliber. Retroaortic left renal vein incidentally noted. IMPRESSION: 1. No acute process. Suspect a hemangioma within the liver. Recommend MRI for further evaluation and confirmation.
== END | disposition home or self-care (01) ==
LOC: RADCTMAIN 10:05
PROVIDERS: ATTEND Family Medicine
DX: R10.813 Right lower quadrant abdominal tenderness (principal); R10.811 Right upper quadrant abdominal tenderness
CPT/HCPCS: 74160; Q9967

== ENCOUNTER → 2019-11-06 | Outpatient (CLI) | payer BC ==
--- NOTE | 2019-11-06 16:37 | XR ---
Right leg HISTORY: Lump on medial mid tibia, trauma 3 weeks prior Frontal and lateral views of the right fibula and tibia are submitted on 3 images No comparisons There is a linear density present within the soft tissues of the lateral aspect of the proximal leg w hich may represent a needlelike foreign body measuring approximately 1 cm posterior aspect. Bone mine ralization is maintained. There is a plantar [place] spur. Small calcifications anterior to the tibia likely vascular. No fracture or dislocation is evident. IMPRESSION: Correlate for possible foreign body of indeterminate age. Leg MRI may be of benefit to as sess for soft tissue injury.
== END | disposition home or self-care (01) ==
LOC: RADXRYALE 16:02
PROVIDERS: ATTEND Physician Assistant Medical
DX: M79.604 Pain in right leg (principal)

== ENCOUNTER → 2020-03-14 | Outpatient (CLI) | payer BC ==
--- NOTE | 2020-03-14 16:20 | CT ---
EXAMINATION TYPE: CT abdomen w con DATE OF EXAM: 03/14/2020 COMPARISON: CT abdomen November 08, 2018 HISTORY: Abnormal findings on diagnostic imaging. Pt mentioned an issue with the liver CT DLP: 1273 mGycm, Automated Exposure Control for Dose Reduction was Utilized. CONTRAST: CT scan of the abdomen is performed with oral and with IV Contrast, patient injected with 100 mL of I sovue 300. FINDINGS: LUNG BASES: No significant abnormality is appreciated. LIVER/GB: Liver remains diffusely low dense consistent with diffuse fatty infiltration. No biliary di latation. In the periphery of the right hepatic lobe there are 2 adjacent masses measuring between 1. 6 and 1.0 cm that show peripheral nodular enhancement with increased centripetal filling likely refle cting small hemangiomas, they're not significantly changed in size from prior study near axial image 10. No new masses are evident. PANCREAS: Mild generalized fat replaced atrophy redemonstrated. SPLEEN: No significant abnormality is seen. ADRENALS: No significant abnormality is seen. KIDNEYS: Symmetric cortical medullary uptake and excretion without concerning mass or hydronephrosis. Circumaortic left renal vein which is normal variant. BOWEL: Oral contrast does not reach colonic level. There is no suspicious small or large bowel dilata tion. Subcentimeter lipoma third portion of duodenum axial image 46 redemonstrated. LYMPH NODES: No greater than 1cm abdominal lymph nodes are appreciated. OSSEOUS STRUCTURES: No significant abnormality is seen. OTHER: No significant additional abnormality is seen. IMPRESSION: Stable size two small peripheral right hepatic lesions favoring hemangiomas. No new hepat ic lesions or ductal dilatation.
== END | disposition home or self-care (01) ==
LOC: RADCTMAIN 15:04
PROVIDERS: ATTEND Family Medicine
DX: K76.89 Other specified diseases of liver (principal)
CPT/HCPCS: 74160; Q9967

== ENCOUNTER 2020-08-11 09:20 | Emergency (ER) | payer BC ==
[2020-08-11 09:30] VITALS: BP 134/85; PULSE 89; RESP 18; TEMP 99.7
[2020-08-11] MEDS ORDERED: IBUPROFEN 600 MG TAB PO STA (10:27)
--- NOTE | 2020-08-11 10:46 | ED ---
General Adult HPI - General Chief complaint: Upper Respiratory Infection Stated complaint: Covid+, wants BAM Time Seen by Provider: 08/11/20 09:52 Source: patient, RN notes reviewed Mode of arrival: ambulatory Limitations: no limitations - History of Present Illness Initial comments: 55-year-old male with a past medical history of thyroid disorder presents to the emergency room for a chief complaint of not feeling well. Patient states that he tested positive for Coronavirus at his primary care doctor's 5 days ago. States that his symptoms started as ago. Patient reports that he feels like he has a fever on and off. States he feels sweaty. He does have a slight cough. He does not feel short of breath. He states the reason he is here today is for a chest x-ray and see if he can have an infusion of bam since his son got this yesterday. Patient has no other complaints at this time including shortness of breath, chest pain, abdominal pain, nausea or vomiting, headache, or visual changes. - Related Data Home Medications Medication Instructions Recorded Confirmed Hydrocodone/Acetaminophen [[place] 1 tab PO Q6HR PRN 03/30/17 06/08/17 5-325] Sulfamethox-Tmp 800-160Mg [Bactrim 1 tab PO Q12HR 06/08/17 06/08/17 DS 800-160 mg] Tamsulosin [Flomax] 0.4 mg PO ONCE 06/08/17 06/08/17 Previous Rx's Medication Instructions Recorded Ibuprofen [Motrin] 600 mg PO Q6HR PRN #40 day 03/30/17 Phenazopyridine [Pyridium] 100 mg PO TID 6 Days day 06/08/17 Temazepam [Restoril] 15 mg PO HS PRN #7 cap 06/08/17 Allergies Allergy/AdvReac Type Severity Reaction Status Date / Time No Known Allergies Allergy Verified 08/11/20 09:30 Review of Systems ROS Statement: Those systems with pertinent positive or pertinent negative responses have been documented in the HPI. ROS Other: All systems not noted in ROS Statement are negative. Past Medical History Past Medical History: Thyroid Disorder Additional Past Medical History / Comment(s): kidney stones History of Any Multi-Drug Resistant Organisms: None Reported Past Surgical History: No Surgical Hx Reported Past Psychological History: No Psychological Hx Reported Smoking Status: Never smoker Past Alcohol Use History: None Reported Past Drug Use History: None Reported General Exam Limitations: no limitations General appearance: alert, in no apparent distress Head exam: Present: atraumatic, normocephalic, normal inspection Eye exam: Present: normal appearance, PERRL, EOMI. Absent: scleral icterus, conjunctival injection, periorbital swelling ENT exam: Present: normal exam, mucous membranes moist Neck exam: Present: normal inspection, full ROM. Absent: tenderness, meningismus, lymphadenopathy Respiratory exam: Present: normal lung sounds bilaterally. Absent: respiratory distress, wheezes, rales, rhonchi, stridor Cardiovascular Exam: Present: regular rate, normal rhythm, normal heart sounds. Absent: systolic murmur, diastolic murmur, rubs, gallop, clicks GI/Abdominal exam: Present: soft, normal bowel sounds. Absent: distended, tenderness, guarding, rebound, rigid Neurological exam: Present: alert Course Vital Signs 08/11/20 09:28 Temperature 99.7 F H Pulse Rate 89 Respiratory 18 Rate Blood Pressure 134/85 O2 Sat by Pulse 97 Oximetry Medical Decision Making - Medical Decision Making Vitals are stable. Patient was given Motrin as he has a low-grade fever of 99.7 patient is well-appearing. Patient is sitting on the edge of the bed in no respiratory distress. Lungs are clear. Chest x-ray does show minimal atelectasis in the left base. Unfortunately patient does not qualify for anti body infusion. I did re-weight patient and he does not meet for BMI. I went through all the indicators and qualifiers and patient does not have any of these. Patient is alert and azithromycin. At this time discussed increasing Motrin and Tylenol to help with his hyperpyrexia which may improve his symptoms. Discussed following up with his doctor and returning here for any worsening symptoms including shortness of breath. Disposition Clinical Impression: COVID-19 Disposition: HOME SELF-CARE Condition: Good Additional Instructions: You may alternate Motrin and Tylenol every 3 hours. Drink plenty of fluids. Follow-up with primary care. If you develop any worsening symptoms such as shortness of breath return to the emergency room. Is patient prescribed a controlled substance at d/c from ED?: No Referrals: Larry So DO [Primary Care Provider] - 1-2 days Time of Disposition: 11:03
--- NOTE | 2020-08-11 10:53 | XR ---
EXAMINATION TYPE: XR chest 1V portable DATE OF EXAM: 08/11/2020 COMPARISON: None INDICATION: SOB,COVID TECHNIQUE: Single frontal view of the chest is obtained. FINDINGS: The heart size is normal. The pulmonary vasculature is normal. A normal plate atelectasis at the left base. Lungs are otherwise clear. IMPRESSION: 1. Minimal plate atelectasis left base.
== END 2020-08-11 11:43 | disposition home or self-care (01) ==
LOC: EC 09:20
DX: U07.1 COVID-19 (principal); Z87.442 Personal history of urinary calculi
CPT/HCPCS: 71045; 99283

== ENCOUNTER 2020-08-13 17:09 | Emergency (ER) | payer BC ==
--- NOTE | 2020-08-13 19:33 | ED ---
SOB HPI - General Chief Complaint: Shortness of Breath Stated Complaint: COVID+, fever,SOB Time Seen by Provider: 08/13/20 19:05 Source: patient, RN notes reviewed, old records reviewed Mode of arrival: ambulatory Limitations: no limitations - History of Present Illness Initial Comments: This is a 55-year-old male who presents with complaints of cough fevers congestion shortness of breath exertional dyspnea. He states he started having symptoms on the third of this month and was diagnosed with Covid19 on the sixth of this month he was seen in the emergency department here and discharged since that he's been having exertional dyspnea were normally can walk Mild no problem now he can barely walk across a very states had hot and cold flashes with a fever up to 101 slight cough he did have a nosebleed recently switched to cough up some dark colored material from that he states when he has sinus congestion which is seasonal. No chest pain no other complaints or modifying factors no nausea no vomiting. 19 MD Complaint: shortness of breath - Related Data Home Medications Medication Instructions Recorded Confirmed Hydrocodone/Acetaminophen [Frost 1 tab PO Q6HR PRN 03/30/17 06/08/17 5-325] Sulfamethox-Tmp 800-160Mg [Bactrim 1 tab PO Q12HR 06/08/17 06/08/17 DS 800-160 mg] Tamsulosin [Flomax] 0.4 mg PO ONCE 06/08/17 06/08/17 Previous Rx's Medication Instructions Recorded Ibuprofen [Motrin] 600 mg PO Q6HR PRN #40 day 03/30/17 Phenazopyridine [Pyridium] 100 mg PO TID 6 Days day 06/08/17 Temazepam [Restoril] 15 mg PO HS PRN #7 cap 06/08/17 Dexamethasone [Decadron] 6 mg PO DAILY #7 tablet 08/13/20 Allergies Allergy/AdvReac Type Severity Reaction Status Date / Time No Known Allergies Allergy Verified 08/13/20 17:47 Review of Systems ROS Statement: Those systems with pertinent positive or pertinent negative responses have been documented in the HPI. ROS Other: All systems not noted in ROS Statement are negative. Past Medical History Past Medical History: Thyroid Disorder Additional Past Medical History / Comment(s): kidney stones. covid + 08/21 History of Any Multi-Drug Resistant Organisms: None Reported Past Surgical History: No Surgical Hx Reported Past Psychological History: No Psychological Hx Reported Smoking Status: Never smoker Past Alcohol Use History: None Reported Past Drug Use History: None Reported General Exam - General Exam Comments Initial Comments: This is a well-developed well-nourished awake alert oriented 3 male Limitations: no limitations General appearance: alert, in no apparent distress Head exam: Present: atraumatic, normocephalic, normal inspection Eye exam: Present: normal appearance, PERRL, EOMI. Absent: scleral icterus, conjunctival injection, periorbital swelling ENT exam: Present: normal exam, mucous membranes moist Neck exam: Present: normal inspection. Absent: tenderness, meningismus, lymphadenopathy Respiratory exam: Present: normal lung sounds bilaterally. Absent: respiratory distress, wheezes, rales, rhonchi, stridor Cardiovascular Exam: Present: regular rate, normal rhythm, normal heart sounds. Absent: systolic murmur, diastolic murmur, rubs, gallop, clicks GI/Abdominal exam: Present: soft, normal bowel sounds. Absent: distended, tenderness, guarding, rebound, rigid Extremities exam: Present: normal inspection, full ROM, normal capillary refill. Absent: tenderness, pedal edema, joint swelling, calf tenderness Back exam: Present: normal inspection Neurological exam: Present: alert, oriented X3, CN II-XII intact Psychiatric exam: Present: normal affect, normal mood Skin exam: Present: warm, dry, intact, normal color. Absent: rash Course Vital Signs 08/13/20 08/13/20 17:44 20:25 Temperature 98.5 F 98.0 F Pulse Rate 90 81 Respiratory 24 18 Rate Blood Pressure 150/66 158/90 O2 Sat by Pulse 95 96 Oximetry Medical Decision Making - Medical Decision Making I did a long discussion with patient regarding findings patient does have mildly elevated troponin and d-dimer is negative. The presentation appears be consistent with Covid pneumonia. Patient does meet criteria for antibody adm inistration. Patient does have an elevated troponin I did offer admission to the patient he does not want to be admitted this time the presence occult blood could be the reason for the elevated troponin. He was encouraged to return if any symptoms he does demonstrate good decision making capacity. He is encouraged to otherwise follow-up with his doctor within the week for any further evaluation. - Lab Data Result diagrams: 08/13/20 19:34 08/13/20 19:34 Lab Results 08/13/20 08/13/20 08/13/20 Range/Units 19:34 19:34 19:34 WBC 8.2 (3.8-10.6) k/uL RBC 5.25 (4.30-5.90) m/uL Hgb 16.0 (13.0-17.5) gm/dL Hct 47.6 (39.0-53.0) % MCV 90.8 (80.0-100.0) fL MCH 30.4 (25.0-35.0) pg MCHC 33.5 (31.0-37.0) g/dL RDW 13.1 (11.5-15.5) % Plt Count 174 (150-450) k/uL MPV 7.9 Neutrophils % 89 % Lymphocytes % 8 % Monocytes % 2 % Eosinophils % 0 % Basophils % 0 % Neutrophils # 7.3 (1.3-7.7) k/uL Lymphocytes # 0.6 L (1.0-4.8) k/uL Monocytes # 0.2 (0-1.0) k/uL Eosinophils # 0.0 (0-0.7) k/uL Basophils # 0.0 (0-0.2) k/uL PT 10.1 (9.0-12.0) sec INR 0.9 (<1.2) APTT 23.7 (22.0-30.0) sec D-Dimer 0.40 (<0.60) mg/L FEU Sodium 135 L (137-145) mmol/L Potassium 3.0 L (3.5-5.1) mmol/L Chloride 99 (98-107) mmol/L Carbon Dioxide 24 (22-30) mmol/L Anion Gap 12 mmol/L BUN 15 (9-20) mg/dL Creatinine 0.83 (0.66-1.25) mg/dL Est GFR (CKD-EPI)AfAm >90 (>60 ml/min/1.73 sqM) Est GFR (CKD-EPI)NonAf >90 (>60 ml/min/1.73 sqM) Glucose 101 H (74-99) mg/dL Plasma Lactic Acid Dexter (0.7-2.0) mmol/L Calcium 8.7 (8.4-10.2) mg/dL Magnesium 1.7 (1.6-2.3) mg/dL Total Bilirubin 1.1 (0.2-1.3) mg/dL AST 34 (17-59) U/L ALT 24 (4-49) U/L Alkaline Phosphatase 88 (38-126) U/L Creatine Kinase 109 (55-170) U/L Troponin I (0.000-0.034) ng/mL NT-Pro-B Natriuret Pep pg/mL Total Protein 6.4 (6.3-8.2) g/dL Albumin 3.6 (3.5-5.0) g/dL 08/13/20 08/13/20 08/13/20 Range/Units 19:34 19:34 19:34 WBC (3.8-10.6) k/uL RBC (4.30-5.90) m/uL Hgb (13.0-17.5) gm/dL Hct (39.0-53.0) % MCV (80.0-100.0) fL MCH (25.0-35.0) pg MCHC (31.0-37.0) g/dL RDW (11.5-15.5) % Plt Count (150-450) k/uL MPV Neutrophils % % Lymphocytes % % Monocytes % % Eosinophils % % Basophils % % Neutrophils # (1.3-7.7) k/uL Lymphocytes # (1.0-4.8) k/uL Monocytes # (0-1.0) k/uL Eosinophils # (0-0.7) k/uL Basophils # (0-0.2) k/uL PT (9.0-12.0) sec INR (<1.2) APTT (22.0-30.0) sec D-Dimer (<0.60) mg/L FEU Sodium (137-145) mmol/L Potassium (3.5-5.1) mmol/L Chloride (98-107) mmol/L Carbon Dioxide (22-30) mmol/L Anion Gap mmol/L BUN (9-20) mg/dL Creatinine (0.66-1.25) mg/dL Est GFR (CKD-EPI)AfAm (>60 ml/min/1.73 sqM) Est GFR (CKD-EPI)NonAf (>60 ml/min/1.73 sqM) Glucose (74-99) mg/dL Plasma Lactic Acid Dexter 1.0 (0.7-2.0) mmol/L Calcium (8.4-10.2) mg/dL Magnesium (1.6-2.3) mg/dL Total Bilirubin (0.2-1.3) mg/dL AST (17-59) U/L ALT (4-49) U/L Alkaline Phosphatase (38-126) U/L Creatine Kinase (55-170) U/L Troponin I 0.068 H* (0.000-0.034) ng/mL NT-Pro-B Natriuret Pep 90 pg/mL Total Protein (6.3-8.2) g/dL Albumin (3.5-5.0) g/dL - EKG Data -: EKG Interpreted by Me EKG shows normal: sinus rhythm EKG Comments: Sinus rhythm a 76. Interval 128 QRS 106 QT since QTC of/439 left exodeviation incomplete right bundle-branch block - Radiology Data Radiology results: report reviewed (Imaging and report reviewed evidence of bilateral infiltrates.), image reviewed Disposition Clinical Impression: Pneumonia due to COVID-19 virus, Elevated troponin Disposition: HOME SELF-CARE Condition: Stable Prescriptions: Dexamethasone [Decadron] 6 mg PO DAILY #7 tablet Is patient prescribed a controlled substance at d/c from ED?: No Referrals: Larry So DO [Primary Care Provider] - 1-2 days
[2020-08-13 19:48] LABS: Basophils % (A) 0 %; Eosinophils % (A) 0 %; HCT 47.6 % (39.0-53.0); Lymphocytes # (A) 0.6 k/uL (1.0-4.8); Lymphocytes % (A) 8 %; MCH 30.4 pg (25.0-35.0); MCHC 33.5 g/dL (31.0-37.0); MCV 90.8 fL (80.0-100.0); Mean Platelet Volume 7.9; Monocytes # (A) 0.2 k/uL (0-1.0); Monocytes % (A) 2 %; Neutrophils # (A) 7.3 k/uL (1.3-7.7); Neutrophils % (A) 89 %; Platelet Count 174 k/uL (150-450); RBC 5.25 m/uL (4.30-5.90); RDW 13.1 % (11.5-15.5); WBC 8.2 k/uL (3.8-10.6)
[2020-08-13 20:00] LABS: ALT 24 U/L (4-49); AST 34 U/L (17-59); African American GFR (CKD) >90 (>60 ml/min/1.73 sqM); Albumin 3.6 g/dL (3.5-5.0); Alkaline Phosphatase 88 U/L (38-126); Anion Gap 12 mmol/L; Blood Urea Nitrogen 15 mg/dL (9-20); Calcium 8.7 mg/dL (8.4-10.2); Carbon Dioxide 24 mmol/L (22-30); Chloride 99 mmol/L (98-107); Creatine Kinase 109 U/L (55-170); Glucose 101 mg/dL (74-99); Magnesium 1.7 mg/dL (1.6-2.3); Non-African American GFR(CKD) >90 (>60 ml/min/1.73 sqM); Sodium 135 mmol/L (137-145); Total Bilirubin 1.1 mg/dL (0.2-1.3); Total Protein 6.4 g/dL (6.3-8.2)
--- NOTE | 2020-08-13 20:03 | XR ---
EXAMINATION TYPE: XR chest 2V DATE OF EXAM: 08/13/2020 COMPARISON: 08/11/2020 HISTORY: Difficulty breathing TECHNIQUE: 2 views FINDINGS: There is some patchy airspace infiltrate in both lower lobes. Heart size is normal. Mediast inum is normal. There is no pleural effusion. IMPRESSION: Bilateral patchy pneumonia is increased compared to old exam. Normal heart.
[2020-08-13 20:18] LABS: D-Dimer 0.4 mg/L FEU (<0.60); INR 0.9 (<1.2); Partial Thromboplastin Time 23.7 sec (22.0-30.0); Prothrombin Time 10.1 sec (9.0-12.0)
[2020-08-13 20:27] VITALS: RESP 18
[2020-08-13] MEDS ORDERED: BAMLANIVIMAB (EUA) 700 MG, ETESEVIMAB (EUA) 1,400 MG in SODIUM CHLORIDE 0.9% 50 ML IVPB ONE (21:15)
[2020-08-13] MEDS ORDERED: SODIUM CHLORIDE 0.9% 50 ML IVPB ONE (21:15)
[2020-08-13 23:01] VITALS: BP 155/92; PULSE 80; TEMP 99.3
== END 2020-08-13 23:01 | disposition home or self-care (01) ==
LOC: EC 17:09
DX: U07.1 COVID-19 (principal); J12.82 Pneumonia due to coronavirus disease 2019; R79.89 Other specified abnormal findings of blood chemistry
CPT/HCPCS: 36415; 93005; 85379; 83880; 80053; 82550; 83605; 83735; 84484; 85025; 85610; 85730; 71046; 99285; 96365; 96361; Q0245

== ENCOUNTER → 2021-05-16 | Outpatient (CLI) | payer BC ==
--- NOTE | 2021-05-16 18:07 | XR ---
EXAMINATION TYPE: XR KUB DATE OF EXAM: 05/16/2021 Comparison: 03/08/2018 Clinical History: 56-year-old male N202, N3001 RENAL CALC, HEMATURIA W CYSTITIS Findings: Lung bases are clear. Supine imaging limited for assessment of free air. No dilated small bowel. Scattered air within the colon extending distally to the rectum. No significant stool burden. No suspicious calcification seen. A couple phleboliths in the pelvis. Impression: A couple phleboliths in the pelvis. Nonobstructive bowel gas pattern. No significant stool burden.
== END | disposition home or self-care (01) ==
LOC: RADXRYALE 09:40
PROVIDERS: ATTEND Family Medicine
DX: I87.8 Other specified disorders of veins (principal)
CPT/HCPCS: 74018

== ENCOUNTER 2021-06-12 21:58 | Observation (INO) | payer BC ==
[2021-06-12] MEDS ORDERED: HYDROmorphone 1 MG/ML 1 ML SYRINGE IVP STA ×2 (22:28→23:03)
[2021-06-12] MEDS ORDERED: ONDANSETRON 4 MG/2 ML VIAL IVP STA (22:28)
[2021-06-12] MEDS ORDERED: SODIUM CHLORIDE 0.9% 1,000 ML IV STA (22:28)
[2021-06-12 22:44] LABS: Appearance,Urine Clear (Clear); Bilirubin,Urine Negative (Negative); Blood,Urine Negative (Negative); Color,Urine Yellow; Glucose,Urine (UA) Negative (Negative); Ketones,Urine Negative (Negative); Leukocyte Esterase,Urine Negative (Negative); Nitrite,Urine Negative (Negative); PH, Urine 6.5 (5.0-8.0); Protein,Urine Trace (Negative); Specific Gravity,Urine 1.019 (1.001-1.035); Urobilinogen,Urine <2.0 mg/dL (<2.0)
[2021-06-12 22:46] LABS: Basophils # (A) 0.1 k/uL (0-0.2); Basophils % (A) 1 %; Eosinophils # (A) 0.7 k/uL (0-0.7); Eosinophils % (A) 10 %; HCT 50.8 % (39.0-53.0); HGB 16.9 gm/dL (13.0-17.5); Lymphocytes # (A) 2.7 k/uL (1.0-4.8); Lymphocytes % (A) 36 %; MCH 31.1 pg (25.0-35.0); MCHC 33.3 g/dL (31.0-37.0); MCV 93.5 fL (80.0-100.0); Mean Platelet Volume 7.8; Monocytes # (A) 0.5 k/uL (0-1.0); Monocytes % (A) 7 %; Neutrophils # (A) 3.1 k/uL (1.3-7.7); Neutrophils % (A) 43 %; Platelet Count 202 k/uL (150-450); RBC 5.43 m/uL (4.30-5.90); RDW 13.2 % (11.5-15.5); WBC 7.3 k/uL (3.8-10.6)
[2021-06-12 22:51] LABS: ALT 19 U/L (4-49); AST 23 U/L (17-59); African American GFR (CKD) >90 (>60 ml/min/1.73 sqM); Albumin 4.4 g/dL (3.5-5.0); Alkaline Phosphatase 79 U/L (38-126); Anion Gap 7 mmol/L; Blood Urea Nitrogen 21 mg/dL (9-20); Calcium 9.3 mg/dL (8.4-10.2); Carbon Dioxide 24 mmol/L (22-30); Chloride 107 mmol/L (98-107); Glucose 124 mg/dL (74-99); Lipase 78 U/L (23-300); Non-African American GFR(CKD) 82 (>60 ml/min/1.73 sqM); Potassium 3.4 mmol/L (3.5-5.1); Sodium 138 mmol/L (137-145); Total Bilirubin 0.8 mg/dL (0.2-1.3); Total Protein 7.3 g/dL (6.3-8.2)
[2021-06-12] MEDS ORDERED: POTASSIUM CHLORIDE ER 20 MEQ TAB.ER PO STA (23:12)
--- NOTE | 2021-06-12 23:20 | ED ---
General Adult HPI - General Chief complaint: Chest Pain Stated complaint: Chest pain Time Seen by Provider: 06/12/21 22:08 Source: patient Mode of arrival: ambulatory - History of Present Illness Initial comments: 56 year-old male patient presents to the emergency department for evaluation of right upper abdominal pain with radiation into his back. Patient states pain started a couple of hours ago and has been worsening. States it hurts to take a deep breath. Reports nausea has not had any vomiting. Symptoms did start after having spicy food for dinner. Denies history of similar pain. Denies any history abdominal surgery or coronary artery disease. Denies any known aortic aneurysm. Denies constipation or diarrhea. States he is urinating without difficulty. Patient denies any recent rash, fever, chills, cough, numbness, tingling, dizziness, weakness, headache, visual changes, or any other complaints. - Related Data Home Medications Medication Instructions Recorded Confirmed Levothyroxine Sodium [Synthroid] 112 mcg PO DAILY 06/12/21 06/12/21 Allergies Allergy/AdvReac Type Severity Reaction Status Date / Time No Known Allergies Allergy Verified 06/12/21 23:30 Review of Systems ROS Statement: Those systems with pertinent positive or pertinent negative responses have been documented in the HPI. ROS Other: All systems not noted in ROS Statement are negative. Past Medical History Past Medical History: Thyroid Disorder Additional Past Medical History / Comment(s): kidney stones. covid + 08/21 History of Any Multi-Drug Resistant Organisms: None Reported Past Surgical History: No Surgical Hx Reported Past Psychological History: No Psychological Hx Reported Smoking Status: Never smoker Past Alcohol Use History: None Reported Past Drug Use History: None Reported General Exam General appearance: alert, in no apparent distress, other (This is a well- developed, well-nourished adult male in no acute distress.) Eye exam: Present: normal appearance, PERRL, EOMI. Absent: scleral icterus, conjunctival injection, periorbital swelling ENT exam: Present: normal exam, normal oropharynx, mucous membranes moist Respiratory exam: Present: normal lung sounds bilaterally. Absent: respiratory distress, wheezes, rales, rhonchi, stridor Cardiovascular Exam: Present: regular rate, normal rhythm, normal heart sounds. Absent: systolic murmur, diastolic murmur, rubs, gallop, clicks GI/Abdominal exam: Present: soft, tenderness (upper abdomen), normal bowel sounds. Absent: distended, guarding, rebound, rigid Neurological exam: Present: alert, oriented X3, CN II-XII intact Psychiatric exam: Present: normal affect, normal mood Skin exam: Present: warm, dry, intact, normal color. Absent: rash Course Vital Signs 06/12/21 06/12/21 06/13/21 21:59 23:00 00:12 Temperature 98.6 F Pulse Rate 74 64 82 Respiratory 19 20 18 Rate Blood Pressure 171/102 162/97 169/89 O2 Sat by Pulse 99 98 98 Oximetry 06/13/21 01:50 Temperature Pulse Rate 65 Respiratory 18 Rate Blood Pressure 151/61 O2 Sat by Pulse 96 Oximetry EKG Findings - EKG Comments: EKG Findings:: EKG obtained at 2211 shows normal sinus rhythm with an incomplete right bundle branch block. Ventricular rate is 62, DC interval 156, QRS duration 113, QT 411, QTC 417. No evidence of ST elevation or depression. Medical Decision Making - Medical Decision Making 56-year-old male patient presented to the emergency department hospital for special surgery for evaluation of right upper quadrant abdominal pain radiating to his back. Pain worsens with deep breathing. Physical examination did reveal tenderness over the midepigastric and right upper quadrant regions. Labs reviewed and revealed normal white blood cell count, potassium 3.4, BUN 21, blood glucose 124. Urine is negative. EKG was unremarkable. Troponin is negative. CT abdomen and pelvis was negative. Patient will be admitted for intractable abdominal pain will order ultrasound of the right upper quadrant for the morning. He is given pain medication. He is agreeable to plan for admission. My attending is Dr. Downing. - Lab Data Result diagrams: 06/12/21 22:31 06/12/21 22:31 Lab Results 06/12/21 06/12/21 06/12/21 Range/Units 22:31 22:31 22:31 WBC 7.3 (3.8-10.6) k/uL RBC 5.43 (4.30-5.90) m/uL Hgb 16.9 (13.0-17.5) gm/dL Hct 50.8 (39.0-53.0) % MCV 93.5 (80.0-100.0) fL MCH 31.1 (25.0-35.0) pg MCHC 33.3 (31.0-37.0) g/dL RDW 13.2 (11.5-15.5) % Plt Count 202 (150-450) k/uL MPV 7.8 Neutrophils % 43 % Lymphocytes % 36 % Monocytes % 7 % Eosinophils % 10 % Basophils % 1 % Neutrophils # 3.1 (1.3-7.7) k/uL Lymphocytes # 2.7 (1.0-4.8) k/uL Monocytes # 0.5 (0-1.0) k/uL Eosinophils # 0.7 (0-0.7) k/uL Basophils # 0.1 (0-0.2) k/uL D-Dimer (<0.60) mg/L FEU Sodium 138 (137-145) mmol/L Potassium 3.4 L (3.5-5.1) mmol/L Chloride 107 (98-107) mmol/L Carbon Dioxide 24 (22-30) mmol/L Anion Gap 7 mmol/L BUN 21 H (9-20) mg/dL Creatinine 1.01 (0.66-1.25) mg/dL Est GFR (CKD-EPI)AfAm >90 (>60 ml/min/1.73 sqM) Est GFR (CKD-EPI)NonAf 82 (>60 ml/min/1.73 sqM) Glucose 124 H (74-99) mg/dL Plasma Lactic Acid Dexter (0.7-2.0) mmol/L Calcium 9.3 (8.4-10.2) mg/dL Total Bilirubin 0.8 (0.2-1.3) mg/dL AST 23 (17-59) U/L ALT 19 (4-49) U/L Alkaline Phosphatase 79 (38-126) U/L Troponin I (0.000-0.034) ng/mL Total Protein 7.3 (6.3-8.2) g/dL Albumin 4.4 (3.5-5.0) g/dL Lipase 78 (23-300) U/L Urine Color Yellow Urine Appearance Clear (Clear) Urine pH 6.5 (5.0-8.0) Ur Specific [place] 1.019 (1.001-1.035) Urine Protein Trace H (Negative) Urine Glucose (UA) Negative (Negative) Urine Ketones Negative (Negative) Urine Blood Negative (Negative) Urine Nitrite Negative (Negative) Urine Bilirubin Negative (Negative) Urine Urobilinogen <2.0 (<2.0) mg/dL Ur Leukocyte Esterase Negative (Negative) 06/12/21 06/12/21 06/13/21 Range/Units 22:31 22:31 00:18 WBC (3.8-10.6) k/uL RBC (4.30-5.90) m/uL Hgb (13.0-17.5) gm/dL Hct (39.0-53.0) % MCV (80.0-100.0) fL MCH (25.0-35.0) pg MCHC (31.0-37.0) g/dL RDW (11.5-15.5) % Plt Count (150-450) k/uL MPV Neutrophils % % Lymphocytes % % Monocytes % % Eosinophils % % Basophils % % Neutrophils # (1.3-7.7) k/uL Lymphocytes # (1.0-4.8) k/uL Monocytes # (0-1.0) k/uL Eosinophils # (0-0.7) k/uL Basophils # (0-0.2) k/uL D-Dimer 0.28 (<0.60) mg/L FEU Sodium (137-145) mmol/L Potassium (3.5-5.1) mmol/L Chloride (98-107) mmol/L Carbon Dioxide (22-30) mmol/L Anion Gap mmol/L BUN (9-20) mg/dL Creatinine (0.66-1.25) mg/dL Est GFR (CKD-EPI)AfAm (>60 ml/min/1.73 sqM) Est GFR (CKD-EPI)NonAf (>60 ml/min/1.73 sqM) Glucose (74-99) mg/dL Plasma Lactic Acid Dexter 1.6 (0.7-2.0) mmol/L Calcium (8.4-10.2) mg/dL Total Bilirubin (0.2-1.3) mg/dL AST (17-59) U/L ALT (4-49) U/L Alkaline Phosphatase (38-126) U/L Troponin I 0.021 (0.000-0.034) ng/mL Total Protein (6.3-8.2) g/dL Albumin (3.5-5.0) g/dL Lipase (23-300) U/L Urine Color Urine Appearance (Clear) Urine pH (5.0-8.0) Ur Specific [place] (1.001-1.035) Urine Protein (Negative) Urine Glucose (UA) (Negative) Urine Ketones (Negative) Urine Blood (Negative) Urine Nitrite (Negative) Urine Bilirubin (Negative) Urine Urobilinogen (<2.0) mg/dL Ur Leukocyte Esterase (Negative) - Radiology Data Radiology results: report reviewed, image reviewed CT abdomen and pelvis with contrast was obtained. Report was reviewed in its entirety. Impression by Dr. Nelson shows mild subsegmental atelectasis at the lung bases. Normal appendix. No acute abnormality of the abdomen and pelvis. There are few sigmoid diverticula. No diverticulitis. No adverse change compared to old exam. Hepatic lesion consistent with a hemangioma and not changed. Disposition Clinical Impression: Intractable abdominal pain Disposition: ADMITTED IP TO THIS [facility] Condition: Serious Decision to Admit Reason: Admit from EC Decision Date: 06/13/21 Decision Time: 00:58
--- NOTE | 2021-06-12 23:48 | CT ---
EXAMINATION TYPE: CT abdomen pelvis w con DATE OF EXAM: 06/12/2021 COMPARISON: 03/14/2020 HISTORY: RUQ pain CT DLP: 1785.2 mGycm Automated exposure control for dose reduction was used. CONTRAST: Performed with IV Contrast, patient injected with 100 mL of Isovue 300. Images obtained from the diaphragm to the floor the pelvis with IV contrast. There is mild subsegmental atelectasis at the lung bases. There is no pleural effusion. Heart size is normal. The stomach is intact. Gallbladder is intact. The bile ducts are not dilated. There is mixed density lesion in the superior lateral right lobe of the liver measuring 4 x 2 cm and consistent wit h hemangioma. There is no evidence of pancreatic mass. Pancreas appears normal. Spleen appears normal . There is no adrenal mass. Kidneys show satisfactory contrast opacification. There is no hydronephrosi s. Delayed images show normal renal excretion. Bladder distends smoothly. There is no inguinal hernia . There is minimal prostate calcification. There is no free fluid in the pelvis. There is no mesenteric edema. There is no ascites or free air. There is no bowel obstruction. Appendi x is medial and appears normal. There are a few large bowel diverticula. There is no diverticulitis. The lumbar vertebrae have normal alignment. Posterior element are intact. There is vacuum disc at L5- S1 with spurring of the endplates. Bony pelvis is intact. The hip joints are intact. IMPRESSION: Mild subsegmental atelectasis at the lung bases. Normal appendix. No acute abnormality in the abdomen and pelvis. There are a few sigmoid diverticula. No diverticulitis. No adverse change compared to old exam. Hepatic lesion consistent with a hemangioma and not changed.
[2021-06-13] MEDS ORDERED: HYDROmorphone 1 MG/ML 1 ML SYRINGE IVP PRN (00:57)
[2021-06-13] MEDS ORDERED: ONDANSETRON 4 MG/2 ML VIAL IVP PRN (00:57)
[2021-06-13] MEDS ORDERED: NALOXONE 0.4 MG/ML 1 ML VIAL IV PRN ×2 (00:57→01:39)
[2021-06-13] MEDS: LEVOTHYROXINE 112 MCG TAB PO SCH (08:51)
--- NOTE | 2021-06-13 08:51 | US ---
EXAMINATION TYPE: US abdomen limited DATE OF EXAM: 06/13/2021 COMPARISON: NONE CLINICAL HISTORY: RUQ pain. pt fell a few days ago, RUQ pain EXAM MEASUREMENTS: Liver Length: 15.4 cm Gallbladder Wall: 0.5 cm CBD: 0.5 cm Right Kidney: 12.6 x 4.2 x 5.8 cm Pancreas: not seen due to bowel gas Liver: intercostal imaging only, unable to view dome where possible hemangioma was seen by CT Gallbladder: sludge seen with wall thickening seen mid level, fundus wall was not thickened. Evidence for sonographic Monk's sign: no CBD: wnl Right Kidney: wnl IMPRESSION: Limited evaluation. Gallbladder sludge with wall thickening noted.
--- NOTE | 2021-06-13 10:18 | P.HPIM ---
History of Present Illness This is a pleasant 56 years old male with past medical history of hypothyroidism presents because of right-sided abdominal pain. Patient presents because of one day of right upper quadrant abdominal pain, radiating around to the back fed like severe tenderness/10 in intensity now improved with pain medication to 1-2/10. Lorraine nonspecific by the patient No associated nausea vomiting or diarrhea. There was suspicion of chest pain on admission was some dyspnea however patient denies and looks like smoke related to his right abdominal pain. Patient also reports falling on the eye about 2-3 days ago on his right side. While some right side pain which is subsided later on before he had another abdominal pain yesterday as above. No urinary or neurological complaints.No headache or dizziness or weakness or numbness. Denies smoking, alcohol or illicit drug Vitas looks stable and patient is afebrile. Unremarkable CBC, BMP and liver enzymes. D-dimer is negative at 0.28, troponin 2 are negative for 0.02. Urine analysis is not suspicious of infection. [place] virus not detected. CT of the abdomen and pelvis with contrast showing mild subsegmental atelectasis at lung bases. Normal appendix. No acute abnormality in the abdomen and pelvis. There are a few sigmoid diverticuli. No diverticulitis. No adverse change compared to old exam. Hepatic lesion consistent with hemangioma and not changed In the emergency room he received pain medication with Dilaudid and normal saline. Put on bowel rest and ultrasound of the abdomen is requested Abdominal ultrasound: Gallbladder sludge with wall thickening noted Review of Systems Review of systems CONSTITUTIONAL: No fever, no malaise, no fatigue. HEENT: No recent visual problems or hearing problems. Denied any sore throat. CARDIOVASCULAR: No orthopnea, PND, no palpitations, no syncope. PULMONARY: No shortness of breath, no cough, no hemoptysis. GASTROINTESTINAL: No diarrhea, no nausea, no vomiting, Normoactive bowel sounds. NEUROLOGICAL: No headaches, no weakness, no numbness. HEMATOLOGICAL: Denies any bleeding or petechiae. GENITOURINARY: Denies any burning micturition, frequency, or urgency. MUSCULOSKELETAL/RHEUMATOLOGICAL: Denies any joint pain, swelling, or any muscle pain. ENDOCRINE: Denies any polyuria or polydipsia. Past Medical History Past Medical History: Thyroid Disorder Additional Past Medical History / Comment(s): kidney stones. covid + 08/21 History of Any Multi-Drug Resistant Organisms: None Reported Past Surgical History: No Surgical Hx Reported Past Psychological History: No Psychological Hx Reported Smoking Status: Never smoker Past Alcohol Use History: None Reported Past Drug Use History: None Reported Medications and Allergies Home Medications Medication Instructions Recorded Confirmed Type Levothyroxine Sodium [Synthroid] 112 mcg PO DAILY 06/12/21 06/12/21 History Allergies Allergy/AdvReac Type Severity Reaction Status Date / Time No Known Allergies Allergy Verified 06/12/21 23:30 Physical Exam Vitals: Vital Signs Temp Pulse Resp BP Pulse Ox 06/13/21 06:06 88 18 162/96 98 06/13/21 04:02 68 18 151/85 96 06/13/21 01:50 65 18 151/61 96 06/13/21 00:12 82 18 169/89 98 06/12/21 23:00 64 20 162/97 98 06/12/21 21:59 98.6 F 74 19 171/102 99 Intake and Output 06/12/21 06/13/21 06/13/21 22:59 06:59 14:59 Other: Weight 108.862 kg GENERAL: The patient is alert and oriented x3, not in any acute distress. Well developed, well nourished. HEENT: Pupils are round and equally reacting to light. EOMI. No scleral icterus. No conjunctival pallor. Normocephalic, atraumatic. No pharyngeal erythema. No thyromegaly. CARDIOVASCULAR: S1 and S2 present. No murmurs, rubs, or gallops. PULMONARY: Chest is clear to auscultation, no wheezing or crackles. ABDOMEN: Soft, nontender, nondistended, normoactive bowel sounds. No palpable organomegaly. MUSCULOSKELETAL: No joint swelling or deformity. EXTREMITIES: No cyanosis, clubbing, or pedal edema. NEUROLOGICAL: Gross neurological examination did not reveal any focal deficits. SKIN: No rashes. no petechiae. Results CBC & Chem 7: 06/12/21 22:31 06/12/21 22:31 Labs: Abnormal Lab Results - Last 24 Hours (Table) 06/12/21 06/12/21 Range/Units 22:31 22:31 Potassium 3.4 L (3.5-5.1) mmol/L BUN 21 H (9-20) mg/dL Glucose 124 H (74-99) mg/dL Urine Protein Trace H (Negative) Assessment and Plan Assessment: RUQ pain and tenderness, could be related to gallbladder disease with gallbladder sludge and wall thickening Hypothyroidism Fall 2-3 days ago without losing consciousness Mildly Elevated blood pressure, possibly essential hypertension Plan: This is a pleasant 56 years old male who presents with abdominal pain Continue with bowel rest and IV fluids and pain management Surgical team consult Bullet Slugs Inspector team consulted for suspicion of chest pain on admission although it looks like more right upper quadrant abdominal pain rib x-ray because of fall 2 days ago Labs and medication were reviewed.. Continue same treatment. Continue with symptomatic treatment. Resume home medication. Monitor lytes and vitals. DVT and GI prophylaxis. Further recommendationsas per clinical course of the patient DVT prophylaxis: Subcutaneous heparin GI Prophylaxis: Pepcid PT/OT: Pending Prognosis is guarded
--- NOTE | 2021-06-13 11:55 | XR ---
EXAMINATION TYPE: XR ribs RT DATE OF EXAM: 06/13/2021 CLINICAL HISTORY: Pain, Fall Four views of the ribs fail demonstrate evidence for displaced rib fracture or secondary sign of rib fracture. Visualized lungs are clear. No evidence for pneumothorax. IMPRESSION: 1. No displaced rib fractures seen. ICD 10 NO FRACTURE, INITIAL EVALUATION
--- NOTE | 2021-06-13 14:43 | P.GSCN ---
History of Present Illness Consult date: 06/13/21 History of present illness: CHIEF COMPLAINT: Abdominal pain HISTORY OF PRESENT ILLNESS: This is a 56-year-old male who presented to the ER with complaints of right upper quadrant abdominal pain that radiated into his back. Patient initially had some right upper quadrant pain after a fall about 3 days ago. Patient reports that he was moving a dog crate box and slipped and fell landing on the right side. However, yesterday after eating spicy food his pain increased severely. He rates the pain over 10 out of 10. Denies any nausea or vomiting. Denies any fevers chills or sweats. Denies any change in bowel habits. Patient denies any urinary symptoms. He also reports that the pain radiated up into the right rib cage. Patient did have an abdominal ultrasound that showed gallbladder sludge with wall thickening. Computed tomography scan of the abdomen had showed no acute abnormality. Patient reports that his pain has now resolved. He has not required any pain medication today. Surgical consult placed for abdominal pain. PAST MEDICAL HISTORY: Thyroid disorder, kidney stones PAST SURGICAL HISTORY: no prior abdominal surgical history MEDICATIONS: See list. ALLERGIES: See list. SOCIAL HISTORY: No illicit drug use. REVIEW OF SYSTEMS: CONSTITUTIONAL: Denies fever or chills. HEENT: Denies blurred vision, vision changes, or eye pain. Denies hemoptysis CARDIOVASCULAR: Denies chest pain or pressure. RESPIRATORY: No shortness of breath. GASTROINTESTINAL: See HPI for pertinent findings HEMATOLOGIC: Denies bleeding disorders. GENITOURINARY: Denies any blood in urine or increased urinary frequency. SKIN: Denies pruitis. Denies rash. PHYSICAL EXAM: VITAL SIGNS: Reviewed GENERAL: Well-developed in no acute distress. HEENT: No sclera icterus. Extraocular movements grossly intact. Moist buccal mucosa. Head is atraumatic, normocephalic. No nasal drainage. ABDOMEN: Soft. Nondistended. nontender. No ecchymosis or abrasions noted on the right upper quadrant NEUROLOGIC: Alert and oriented. Cranial nerves II through XII grossly intact. LABORATORY DATA: WBC 7.3 HGB 16.9 and platelets 202 d-dimer 0.28 Sodium 138 potassium 3.4 creatinine 1.01 Lactic acid 1.6 AST 23 ALT 19 alk phos 79 total bilirubin 0.8 Lipase 78 Troponin negative 3 Urinalysis no evidence of infection COVID-19 not detected IMAGING: CT chest abdomen and pelvis mild subsegmental atelectasis at the lung bases. Normal appendix. No acute abnormality in the abdomen and pelvis. There are a few sigmoid diverticula. No diverticulitis. No adverse change compared to old exam. Hepatic lesion consistent with hemangioma not changed. Abdominal ultrasound, limited evaluation. Gallbladder sludge with thickening noted X-ray of rib cage and no displaced rib fracture seen ASSESSMENT: 1. Right upper quadrant abdominal pain with abdominal ultrasound showing gallbladder sludge with thickening noted 2. History of fall about 3 days ago hitting the right upper quadrant PLAN: -Start low-fat diet -Continue supportive care -Continue to monitor -Further recommendations forthcoming per surgeon Thank you for this consultation Physician Vice President Of Academic Affairs note has been reviewed by physician. Signing provider agrees with the documented findings, assessment, and plan of care. Past Medical History Past Medical History: Thyroid Disorder Additional Past Medical History / Comment(s): kidney stones. covid + 08/21 History of Any Multi-Drug Resistant Organisms: None Reported Past Surgical History: No Surgical Hx Reported Past Psychological History: No Psychological Hx Reported Smoking Status: Never smoker Past Alcohol Use History: None Reported Past Drug Use History: None Reported Medications and Allergies Home Medications Medication Instructions Recorded Confirmed Type Levothyroxine Sodium [Synthroid] 112 mcg PO DAILY 06/12/21 06/12/21 History Allergies Allergy/AdvReac Type Severity Reaction Status Date / Time No Known Allergies Allergy Verified 06/12/21 23:30 Surgical - Exam Vital Signs Temp Pulse Resp BP Pulse Ox 98.6 F 74 19 171/102 99 06/12/21 21:59 06/12/21 21:59 06/12/21 21:59 06/12/21 21:59 06/12/21 21:59 Results - Labs 06/12/21 22:31 06/12/21 22:31 Abnormal Lab Results - Last 24 Hours (Table) 06/12/21 06/12/21 Range/Units 22:31 22:31 Potassium 3.4 L (3.5-5.1) mmol/L BUN 21 H (9-20) mg/dL Glucose 124 H (74-99) mg/dL Urine Protein Trace H (Negative) Diabetes panel 06/12/21 Range/Units 22:31 Sodium 138 (137-145) mmol/L Potassium 3.4 L (3.5-5.1) mmol/L Chloride 107 (98-107) mmol/L Carbon Dioxide 24 (22-30) mmol/L BUN 21 H (9-20) mg/dL Creatinine 1.01 (0.66-1.25) mg/dL Glucose 124 H (74-99) mg/dL Calcium 9.3 (8.4-10.2) mg/dL AST 23 (17-59) U/L ALT 19 (4-49) U/L Alkaline Phosphatase 79 (38-126) U/L Total Protein 7.3 (6.3-8.2) g/dL Albumin 4.4 (3.5-5.0) g/dL Calcium panel 06/12/21 Range/Units 22:31 Calcium 9.3 (8.4-10.2) mg/dL Albumin 4.4 (3.5-5.0) g/dL Pituitary panel 06/12/21 Range/Units 22:31 Sodium 138 (137-145) mmol/L Potassium 3.4 L (3.5-5.1) mmol/L Chloride 107 (98-107) mmol/L Carbon Dioxide 24 (22-30) mmol/L BUN 21 H (9-20) mg/dL Creatinine 1.01 (0.66-1.25) mg/dL Glucose 124 H (74-99) mg/dL Calcium 9.3 (8.4-10.2) mg/dL Adrenal panel 06/12/21 Range/Units 22:31 Sodium 138 (137-145) mmol/L Potassium 3.4 L (3.5-5.1) mmol/L Chloride 107 (98-107) mmol/L Carbon Dioxide 24 (22-30) mmol/L BUN 21 H (9-20) mg/dL Creatinine 1.01 (0.66-1.25) mg/dL Glucose 124 H (74-99) mg/dL Calcium 9.3 (8.4-10.2) mg/dL Total Bilirubin 0.8 (0.2-1.3) mg/dL AST 23 (17-59) U/L ALT 19 (4-49) U/L Alkaline Phosphatase 79 (38-126) U/L Total Protein 7.3 (6.3-8.2) g/dL Albumin 4.4 (3.5-5.0) g/dL
[2021-06-13] MEDS: ACETAMINOPHEN TAB 325 MG TAB PO PRN (21:12)
[2021-06-14] MEDS: ACETAMINOPHEN TAB 325 MG TAB PO PRN (02:14)
[2021-06-14] MEDS: LEVOTHYROXINE 112 MCG TAB PO SCH (06:04)
[2021-06-14 06:38] LABS: Magnesium 1.9 mg/dL (1.6-2.3); Potassium 3.7 mmol/L (3.5-5.1)
[2021-06-14 08:29] VITALS: BP 150/68; PULSE 76; RESP 18; TEMP 98.5
--- NOTE | 2021-06-14 10:42 | P.CRDCN ---
History of Present Illness History of present illness: HISTORY OF PRESENTING ILLNESS This is a pleasant 56-year-old with past medical history significant for kidney stones, gallbladder sludge who presents secondary to right flank pain. Patient states he had been coming in from outside and then started noticing right-sided flank pain. He thought this was a kidney stone or may be a back spasm and therefore attempted to crack his back without much improvement. They got somewhat worse and radiated to his right upper quadrant and therefore presented to emergency department. Patient had blood work performed which showed normal troponins 3, EKG unrevealing and abdominal ultrasound which showed gallbladder sludge. Patient states he is normally very active and able to walk around and exercise for 15-20 minutes every morning without any inhibition. He states the pain is completely resolved. His been able walk the halls without any dif ficulty. REVIEW OF SYSTEMS At the time of my exam: CONSTITUTIONAL: Denies fever or chills. CARDIOVASCULAR: Denies chest pain, shortness of breath, orthopnea, PND or palpitations. RESPIRATORY: Denies cough. GASTROINTESTINAL: +abdominal /flank pain, no diarrhea, constipation, nausea or vomiting. MUSCULOSKELETAL: Denies myalgias. NEUROLOGIC: Denies numbness, tingling or weakness. ENDOCRINE: Denies fatigue, weight change, polydipsia or polyurina. GENITOURINARY: Denies burning, hematuria or urgency with micturation. HEMATOLOGIC: Denies history of anemia or bleeding. PHYSICAL EXAMINATION Vital signs reviewed. CONSTITUTIONAL: No apparent distress. HEENT: Head is normocephalic. Pupils are equal, round. Sclerae anicteric. Mucous membranes of the mouth are moist. No JVD. No carotid bruit. CHEST EXAMINATION: Lungs are clear to auscultation. No chest wall tenderness is noted on palpation or with deep breathing. HEART EXAMINATION: Regular rate and rhythm. S1, S2 heard. No murmurs, gallops or rub. ABDOMEN: Soft, nontender. Positive bowel sounds. EXTREMITIES: 2+ peripheral pulses, no lower extremity edema and no calf tenderness. NEUROLOGIC EXAMINATION: Patient is awake, alert and oriented x3. ASSESSMENT 1. Right upper quadrant/flank pain related to gallbladder disease. Does not ap pear typical of any angina, improved 2. Elevated blood pressure appears reactive, white coat hypertension 3. Gallbladder disease PLAN Agent adamant he wants to go home and no further workup. May consider outpatient echo or stress testing if symptoms persist or new symptoms however currently no significant angina-type symptoms and patient stable for discharge home. Past Medical History Past Medical History: Thyroid Disorder Additional Past Medical History / Comment(s): kidney stones. covid + 08/21 History of Any Multi-Drug Resistant Organisms: None Reported Past Surgical History: No Surgical Hx Reported Past Psychological History: No Psychological Hx Reported Smoking Status: Never smoker Past Alcohol Use History: None Reported Past Drug Use History: None Reported Medications and Allergies Home Medications Medication Instructions Recorded Confirmed Type Levothyroxine Sodium [Synthroid] 112 mcg PO DAILY 06/12/21 06/12/21 History Acetaminophen Tab [Tylenol] 325 mg PO Q6HR PRN tab 06/14/21 Rx Allergies Allergy/AdvReac Type Severity Reaction Status Date / Time No Known Allergies Allergy Verified 06/12/21 23:30 Physical Exam Vitals: Vital Signs Temp Pulse Resp BP Pulse Ox 06/14/21 08:00 76 18 06/14/21 07:00 98.5 F 76 18 150/68 98 06/14/21 01:53 98.2 F 80 17 145/75 98 06/13/21 18:50 98.6 F 100 16 166/83 99 06/13/21 14:29 98.5 F 94 18 166/94 98 06/13/21 11:58 97.3 F L 84 20 163/73 99 06/13/21 11:19 87 136/98 Intake and Output 06/13/21 06/14/21 06/14/21 22:59 06:59 14:59 Intake Total 355 Balance 355 Intake: Oral 355 Other: Voiding Method Toilet # Voids 1 3 Results 06/12/21 22:31 06/14/21 06:03 Comprehensive Metabolic Panel 06/14/21 Range/Units 06:03 Potassium 3.7 (3.5-5.1) mmol/L Current Medications Generic Name Dose Route Start Last Admin Trade Name Freq PRN Reason Stop Dose Admin Acetaminophen 325 mg 06/13/21 20:52 06/14/21 02:14 Acetaminophen Tab 325 Mg Tab PO 325 mg Q6HR PRN Administration Fever and/ or Pain Hydromorphone HCl 1 mg 06/13/21 00:57 06/13/21 01:05 Hydromorphone 1 Mg/Ml 1 Ml Syringe IVP 1 mg Q3HR PRN Administration Severe Pain Levothyroxine Sodium 112 mcg 06/13/21 08:00 06/14/21 06:04 Levothyroxine 112 Mcg Tab PO 112 mcg DAILY@0630 YURY Administration Naloxone HCl 0.2 mg 06/13/21 00:57 Naloxone 0.4 Mg/Ml 1 Ml Vial IV Q2M PRN Opioid Reversal Naloxone HCl 0.2 mg 06/13/21 01:39 Naloxone 0.4 Mg/Ml 1 Ml Vial IV Q2M PRN Opioid Reversal Ondansetron HCl 4 mg 06/13/21 00:57 Ondansetron 4 Mg/2 Ml Vial IVP Q8HR PRN Nausea And Vomiting Intake and Output 06/13/21 06/14/21 06/14/21 22:59 06:59 14:59 Intake Total 355 Balance 355 Intake: Oral 355 Other: Voiding Method Toilet # Voids 1 3 06/12/21 22:31 06/14/21 06:03
--- NOTE | 2021-06-14 10:50 | P.PN ---
Progress Note - Text Progress Note Date: 06/14/21 Patient feels better. He denies any abdominal pain. On exam vitals are stable. Abdomen soft. Patient is adamant that he wants to go home today. He will be discharged home. He will follow-up for his gallbladder as an outpatient.
--- NOTE | 2021-06-14 22:54 | P.DS ---
Providers Date of admission: 06/13/21 01:39 Attending physician: Marco Antonio Barnett Consults: 06/13/21 10:00 Consult Physician Urgent Consulting Provider: Leonel Morris Consult Reason/Comments: upper abd pain, h/o fall 2-3 days ago Do you want consulting provider notified?: Yes 06/13/21 14:16 Consult Physician Urgent Consulting Provider: Kemal Majano Consult Reason/Comments: epigastric pain Do you want consulting provider notified?: Yes Primary care physician: [facility] Course: Diagnoses: RUQ pain and tenderness, could be related to gallbladder disease with gallbladder sludge and wall thickening Right-sided chest pain, could be related to gallbladder disease or fall on his right side 2-3 days ago however rule out cardiac causes. Patient resolved Hypothyroidism Fall 2-3 days ago without losing consciousness Mildly Elevated blood pressure, possibly essential hypertension Hospital course: This is a pleasant 56 years old male with past medical history of hypothyroidism presents because of right-sided abdominal pain. His pain most likely related to his gallbladder disease as follows CT of the abdomen and pelvis with contrast showing mild subsegmental atelectasis at lung bases. Normal appendix. No acute abnormality in the abdomen and pelvis. There are a few sigmoid diverticuli. No diverticulitis. No adverse change compared to old exam. Hepatic lesion consistent with hemangioma and not changed Abdominal ultrasound: Gallbladder sludge with wall thickening noted Surgical team evaluated the patient. However patient pain is completely resolved this morning and he was adamant to go home " I am going home no matter what" and surgery team cleared him for discharge recommendation for close outpatient follow-up for gallbladder reevaluation by surgery team. Mortgage Manager consulted for right-sided chest pain, however as stated above he was chest pain-free today. Patient did not want pursue further cardiac workup. Cardiology cleared him for discharge He was asymptomatic today. Patient was cleared by surgery and gin feeder for discharge Problems and management plan were discussed with the patient and he verbalized understanding and acceptance Patient was found stable and can be discharged home however he needs follow-up as an outpatient. Patient was instructed to follow up with PCP within one week and patient agrees Patient was instructed to follow up with Dr. Ramos surgeon in 5-7 days and he agrees. And gin feeder Dr. Majano in 1-2 weeks. Physical exam Gen: patient is a AAOx3, no distress CVS: S1-S2, RRR, no murmur Lungs: B/L CTA, no wheezing Abdomen: soft, no distention, no tenderness, positive bowel sounds Extremity: no leg edema or induration Time spent more than 35 minutes Patient Condition at Discharge: Serious Plan - Discharge Summary Discharge Rx Participant: No New Discharge Prescriptions: New Acetaminophen Tab [Tylenol] 325 mg PO Q6HR PRN tab PRN Reason: Fever And/ Or Pain Continue Levothyroxine Sodium [Synthroid] 112 mcg PO DAILY Discharge Medication List Levothyroxine Sodium [Synthroid] 112 mcg PO DAILY 06/12/21 [History] Acetaminophen Tab [Tylenol] 325 mg PO Q6HR PRN tab 06/14/21 [Rx] Follow up Appointment(s)/Referral(s): Kemal Majano DO [STAFF PHYSICIAN] - 2 Weeks (heart doctor ) Larry So DO [Primary Care Provider] - 1-2 days Leonel Morris MD [STAFF PHYSICIAN] - 1-2 Days (please schedule follow up for either Wednesday (06/17) or (06/19) with Dr. Morris. ) Patient Instructions/Handouts: Low Fat Diet (ED) Activity/Diet/Wound Care/Special Instructions: Heart healthy low fat diet Activity as tolerated Discharge Disposition: HOME SELF-CARE
== END 2021-06-14 11:26 | disposition home or self-care (01) ==
LOC: EC 21:58 → 6NMEDSUR 06-13 01:39
PROVIDERS: ADMIT Hospitalist; ATTEND Hospitalist
DX: R10.11 Right upper quadrant pain (principal); R10.13 Epigastric pain; R07.89 Other chest pain; R11.0 Nausea; K82.8 Other specified diseases of gallbladder; E03.9 Hypothyroidism, unspecified; R03.0 Elevated blood-pressure reading, without diagnosis of hypertension; J98.11 Atelectasis; K57.30 Diverticulosis of large intestine without perforation or abscess without bleeding; K76.89 Other specified diseases of liver; Z91.81 History of falling; Z20.822 Contact with and (suspected) exposure to COVID-19; Z79.890 Hormone replacement therapy; Z87.442 Personal history of urinary calculi; Z86.16 Personal history of COVID-19; Z71.9 Counseling, unspecified; Z71.3 Dietary counseling and surveillance
CPT/HCPCS: 96376 ×2; 96361 ×2; 96374; 96375; 99285; 36415 ×2; 93005; 85379; 80053; 83605; 83690; 83735; 84132; 84484 ×2; 85025; 81003; 87635; 71100; 76705; 74177; G0378 ×2; J2405; J1170 ×2; Q9967